=== PATIENT | female | born 1970 | race Caucasian/White ===

== ENCOUNTER 2020-06-09 07:31 | Day surgery (SDC) | payer OTHER, SELFPAY ==
[2020-06-01 15:36] VITALS: BMI 34.1
--- NOTE | 2020-06-04 13:48 | HO.ANESPROP2 ---
Documented by User: Lidia Ahumada 06/04/20 13:49 HPI - Anesthesia Eval Consult details Narrative: 49yo F for Colonoscopy PMFSH Past Medical History Medical History Depression HSV (herpes simplex virus) infection Hx of migraine headaches Hypothyroid Insomnia Surgical History Surgical History History of bilateral carpal tunnel release History of tubal ligation Hx of cholecystectomy [place] teeth extracted Social History Social History Are you a primary animal care attendant to a significant other at home: No Do you presently have visiting nurse or other home services: No Smoking Status: Former smoker Smoking Quit Date: > 10 yrs ago Use of substances other than those prescribed or required for medical reasons: No Have you been hit, kicked, punched, or otherwise hurt by someone within the past year? If so, by whom?: No Advance Directives: No Advance Directives Information Provided: No Advance Directives on File: No Recently lost weight without trying: No Meds Allergies Allergy/AdvReac Type Severity Reaction Status Date / Time sumatriptan [From IMITREX] Allergy Mild N/V Unverified 06/01/20 15:17 topiramate [From TOPAMAX] Allergy Mild HALLUCINATI Unverified 06/01/20 15:17 ONS latex Allergy Unknown Verified 06/01/20 15:35 Home Medications Medication Instructions Recorded Confirmed Last Taken Type jadnzxyitb-jcrzwraafscht-gxao 1 tab PO DIRECTED PRN 06/01/20 06/01/20 Unknown History fluoxetine 1 cap PO Q OTHER DAY 06/01/20 06/01/20 Unknown History fluoxetine 1 cap PO Q OTHER DAY 06/01/20 06/01/20 Unknown History gabapentin 1 cap PO TID 06/01/20 06/01/20 Unknown History levothyroxine 1 tab PO DAILY 06/01/20 06/01/20 Unknown History nabumetone 1 tab PO BID 06/01/20 06/01/20 Unknown History omega-3 fatty acids [Fish Oil] 1,000 mg PO DAILY 06/01/20 06/01/20 Unknown History omeprazole 1 cap PO DAILY 06/01/20 06/01/20 Unknown History valacyclovir 1 tab PO DAILY 06/01/20 06/01/20 Unknown History vitamin B complex [B Complex] 1 cap PO DAILY 06/01/20 06/01/20 Unknown History Exam Exam Date and Time: June 04, 2020 1348 Height,Weight and Vital Signs: Height 4 ft 11.5 in Weight 78.018 kg Assessment and Plan Assessment Anesthesia Assessment: Chart Reviewed Documented by User: Aysha Yañez 06/09/20 08:17 [facility] Past Medical History Medical History Depression HSV (herpes simplex virus) infection Hx of migraine headaches Hypothyroid Insomnia Surgical History Surgical History History of bilateral carpal tunnel release History of tubal ligation Hx of cholecystectomy [place] teeth extracted Social History Social History Are you a primary animal care attendant to a significant other at home: No Do you presently have visiting nurse or other home services: No Smoking Status: Former smoker Smoking Quit Date: > 10 yrs ago Use of substances other than those prescribed or required for medical reasons: No Have you been hit, kicked, punched, or otherwise hurt by someone within the past year? If so, by whom?: No Advance Directives: No Advance Directives Information Provided: No Advance Directives on File: No Recently lost weight without trying: No Meds Allergies Allergy/AdvReac Type Severity Reaction Status Date / Time sumatriptan [From IMITREX] Allergy Mild N/V Unverified 06/01/20 15:17 topiramate [From TOPAMAX] Allergy Mild HALLUCINATI Unverified 06/01/20 15:17 ONS latex Allergy Unknown Verified 06/01/20 15:35 Home Medications Medication Instructions Recorded Confirmed Last Taken Type lsnglyonpv-jhxmfitrrnsle-szsg 1 tab PO DIRECTED PRN 06/01/20 06/01/20 Unknown History fluoxetine 1 cap PO Q OTHER DAY 06/01/20 06/01/20 Unknown History fluoxetine 1 cap PO Q OTHER DAY 06/01/20 06/01/20 Unknown History gabapentin 1 cap PO TID 06/01/20 06/01/20 Unknown History levothyroxine 1 tab PO DAILY 06/01/20 06/01/20 Unknown History nabumetone 1 tab PO BID 06/01/20 06/01/20 Unknown History omega-3 fatty acids [Fish Oil] 1,000 mg PO DAILY 06/01/20 06/01/20 Unknown History omeprazole 1 cap PO DAILY 06/01/20 06/01/20 Unknown History valacyclovir 1 tab PO DAILY 06/01/20 06/01/20 Unknown History vitamin B complex [B Complex] 1 cap PO DAILY 06/01/20 06/01/20 Unknown History Exam Airway Mallampati Class: II TM Dist: >3cm Neck ROM: Full Assessment and Plan Assessment Anesthesia Assessment: Anesthesia Plan Discussed and Chart Reviewed Final Anesthetic Review NPO: Yes ASA Class: II Final Preanesthetic Review: No Changes in Pt Med Stat, Meds/Allgs Chart Reviewed, Consent Obtained/Reviewed and Anes Risks/Benef Reviewed Patient Risk: Low Procedure Risk: Low Assessment/Block/Sedation in SS: Assess/Block/Sedation-SS Anesthetic Plan Anesthetic Plan: MAC: Disposition: Standard PACU
[2020-06-09 07:54] VITALS: BP 126/81; PULSE 85; RESP 18; TEMP 36.6; O2SAT 95
[2020-06-09] MEDS: Lactated Ringers 1,000 ML 100 ML IVCONT (08:13)
--- NOTE | 2020-06-09 08:38 | MHC.SHP ---
Pre-Procedural Eval Section B Chief Complaint: Screening Details of Present Illness: screening Relevant Family History (Specify if Yes): No Relevant Social History: None Present Medications: see Short Stay Collaborative assessment Medical History: No relevant PMH History of Previous Operations: No relevant previous surgery Allergies: Allergies Allergy/AdvReac Type Severity Reaction Status Date / Time sumatriptan [From IMITREX] Allergy Mild N/V Unverified 06/01/20 15:17 topiramate [From TOPAMAX] Allergy Mild HALLUCINATI Unverified 06/01/20 15:17 ONS latex Allergy Unknown Verified 06/01/20 15:35 Review of Systems Sugical H&P ROS: Negative: Constitution, Cardiovascular, Respiratory, Neurological, Psychiatric, Hem-Onc, Allergic/Immunologic, Gastrointestinal, Genitourinary, Musculoskeletal, Integumentary, Endocrine and Eyes/Ears/Nose/Throat Exam Surgical H&P Exam: Normal: HEENT, Normal: Heart, Normal: Lungs, Normal: Extremities, Normal: Abdomen, Normal: Skin and Normal: Neurological Plan I have reviewed the history and physical and performed a pertinent physical examination on my patient. No changes have occurred unless specified.
[2020-06-09 09:05] VITALS: BP 103/62; PULSE 82; RESP 16; TEMP 36.9; O2SAT 96
--- NOTE | 2020-06-09 09:07 | PM.OP ---
Brief Operative Note Date of Service: 06/09/20 Pre-op diagnosis: screening Post-op diagnosis: same Procedure: colonoscopy Surgeon: Patrick Frank Anesthesia: MAC Estimated blood loss (mL): 0 Pathology: other (polyp 15 cm) Condition: stable Disposition: PACU
[2020-06-09 09:20] VITALS: BP 132/80; PULSE 64; RESP 17; TEMP 36.9; O2SAT 98
--- NOTE | 2020-06-09 09:22 | OP_ITS ---
SURGEON: Patrick Frank MD INDICATIONS: Colon cancer screening. PREOPERATIVE DIAGNOSIS: POSTOPERATIVE DIAGNOSIS: PROCEDURE PERFORMED: ESTIMATED BLOOD LOSS: COMPLICATIONS: ANESTHESIA: Medications, monitored anesthesia care. ASSISTANTS: SPECIMENS: PROCEDURES PERFORMED: Colonoscopy to the terminal ileum with snare polypectomy. DESCRIPTION OF PROCEDURE: History and physical performed. The risks and benefits of the procedure were explained to the patient. Informed consent was obtained. The patient was placed in the left lateral decubitus position. A digital rectal exam was performed and was found to be normal. The Olympus pediatric video colonoscope was introduced into the rectum and advanced to the cecum without difficulty. The cecum was identified by transillumination, palpation, and identification of ileocecal valve. Examination was performed. The scope was removed. She tolerated the procedure well and was taken to the recovery area in stable condition. FINDINGS: The terminal ileum was examined and appeared normal. The visualized colonic mucosa was within normal limits without evidence of masses or ulcers. A single polyp measuring approximately 8 mm was identified in the sigmoid at 15 cm. This was removed with a snare and recovered via suction. No other polyps were identified. There was scattered diverticulosis throughout the colon. The quality of the prep was good. Retroflexed examination was normal. IMPRESSION: Colon polyp. RECOMMENDATION: Follow up the biopsy results. MD TAMIKA Rowley/DOMINIQUE / [id number]
== END 2020-06-09 09:40 | disposition home or self-care (01) ==
PROVIDERS: PCP Internal Medicine; Visit Provider Internal Medicine Gastroenterology
PROC: 0DJD8ZZ Inspection of Lower Intestinal Tract, Via Natural or Artificial Opening Endoscopic (ICD-10-PCS; CPT 45378; principal; 2020-06-09 08:30)
DX: Z12.11 Encounter for screening for malignant neoplasm of colon (principal); K57.30 Diverticulosis of large intestine without perforation or abscess without bleeding; K63.5 Polyp of colon; Z79.899 Other long term (current) drug therapy; Z91.040 Latex allergy status; Z88.8 Allergy status to other drugs, medicaments and biological substances; Z87.891 Personal history of nicotine dependence
CPT/HCPCS: 45385; 88305

== ENCOUNTER 2020-10-28 | Outpatient (REF) | payer OTHER, SELFPAY | END 2020-10-28 00:01 | disposition home or self-care (01) | LOC: HO.LNP | PROVIDERS: Visit Provider Internal Medicine | DX: Z20.822 Contact with and (suspected) exposure to COVID-19 (principal); J06.9 Acute upper respiratory infection, unspecified | CPT/HCPCS: U0003; U0005 ==

== ENCOUNTER 2020-10-29 11:20 | Outpatient (REF) | payer OTHER, SELFPAY | END 2020-10-29 11:21 | disposition home or self-care (01) | LOC: HO.LNP 11:20 | PROVIDERS: Visit Provider Internal Medicine | DX: Z13.89 Encounter for screening for other disorder (principal) ==

== ENCOUNTER → 2020-11-23 15:42 | Outpatient (BNVA) | payer OTHER, SELFPAY | PROVIDERS: PCP Internal Medicine; Visit Provider Internal Medicine | DX: G47.33 Obstructive sleep apnea (adult) (pediatric) (principal); R53.83 Other fatigue; E66.9 Obesity, unspecified | CPT/HCPCS: 99212 ==

== ENCOUNTER → 2020-12-24 14:00 | Outpatient (REF) | payer OTHER, SELFPAY | LOC: HO.SL 14:00 | PROVIDERS: PCP Internal Medicine; Visit Provider Internal Medicine | DX: G47.33 Obstructive sleep apnea (adult) (pediatric) (principal); E66.9 Obesity, unspecified; R53.83 Other fatigue | CPT/HCPCS: 95806 ==

== ENCOUNTER 2021-01-18 08:05 | Outpatient (REF) | payer OTHER, SELFPAY | END 2021-01-18 08:06 | disposition home or self-care (01) | LOC: HO.HMGCLDS 08:05 | PROVIDERS: PCP Internal Medicine; Visit Provider Internal Medicine | DX: Z20.822 Contact with and (suspected) exposure to COVID-19 (principal) | CPT/HCPCS: C9803; U0003; U0005 ==

== ENCOUNTER 2021-02-15 14:47 | Outpatient (REF) | payer OTHER, SELFPAY ==
--- NOTE | ~2021-02-15 | XR_ITS ---
EXAMINATION: XR ELBOW, LEFT XR HAND, LEFT XR SHOULDER, LEFT XR CERVICAL SPINE CLINICAL INFORMATION: Personal history of other healed physical injury. Hand pain. COMPARISON: None TECHNIQUE: 3 views of the cervical spine. 3 views of the left shoulder. 3 views of the left elbow. 3 views of the left hand. FINDINGS: CERVICAL SPINE: No fracture or dislocation. Intervertebral disc height loss at C4-C5 and C5-C6 with marginal osteophyte formation. Minimal anterolisthesis of C3 on C4, minimal retrolisthesis of C4 on C5 and C5 on C6. Prevertebral soft tissues are unremarkable. Lung apices are clear. Dens is intact. LEFT SHOULDER: No fracture or dislocation: The glenohumeral joints and acromioclavicular joints are intact. Mild calcification projecting over the region of the greater tuberosity suggesting calcific tendinosis. Remainder of soft tissues are unremarkable. Visualized left lung is clear. LEFT ELBOW: No fracture or dislocation. Some calcification projecting over the lateral epicondyle. No foreign bodies. Soft tissues unremarkable. LEFT HAND: No fracture or dislocation. Alignment is normal. Soft tissues unremarkable. Cartilage spaces are preserved. XR/XR shoulder LT min 2V IMPRESSION: Degenerative disc disease in the cervical spine, greatest at C4-C5 and C5-C6. No acute process. No acute abnormality in the left shoulder. Suspect calcific tendinosis of the rotator cuff insertion. No acute fracture in the elbow. Calcifications projecting over the lateral epicondyle could represent epicondylitis.
--- NOTE | ~2021-02-15 | XR_ITS ---
EXAMINATION: XR ELBOW, LEFT XR HAND, LEFT XR SHOULDER, LEFT XR CERVICAL SPINE CLINICAL INFORMATION: Personal history of other healed physical injury. Hand pain. COMPARISON: None TECHNIQUE: 3 views of the cervical spine. 3 views of the left shoulder. 3 views of the left elbow. 3 views of the left hand. FINDINGS: CERVICAL SPINE: No fracture or dislocation. Intervertebral disc height loss at C4-C5 and C5-C6 with marginal osteophyte formation. Minimal anterolisthesis of C3 on C4, minimal retrolisthesis of C4 on C5 and C5 on C6. Prevertebral soft tissues are unremarkable. Lung apices are clear. Dens is intact. LEFT SHOULDER: No fracture or dislocation: The glenohumeral joints and acromioclavicular joints are intact. Mild calcification projecting over the region of the greater tuberosity suggesting calcific tendinosis. Remainder of soft tissues are unremarkable. Visualized left lung is clear. LEFT ELBOW: No fracture or dislocation. Some calcification projecting over the lateral epicondyle. No foreign bodies. Soft tissues unremarkable. LEFT HAND: No fracture or dislocation. Alignment is normal. Soft tissues unremarkable. Cartilage spaces are preserved. XR/XR cervical spine 3V IMPRESSION: Degenerative disc disease in the cervical spine, greatest at C4-C5 and C5-C6. No acute process. No acute abnormality in the left shoulder. Suspect calcific tendinosis of the rotator cuff insertion. No acute fracture in the elbow. Calcifications projecting over the lateral epicondyle could represent epicondylitis.
--- NOTE | ~2021-02-15 | XR_ITS ---
EXAMINATION: XR ELBOW, LEFT XR HAND, LEFT XR SHOULDER, LEFT XR CERVICAL SPINE CLINICAL INFORMATION: Personal history of other healed physical injury. Hand pain. COMPARISON: None TECHNIQUE: 3 views of the cervical spine. 3 views of the left shoulder. 3 views of the left elbow. 3 views of the left hand. FINDINGS: CERVICAL SPINE: No fracture or dislocation. Intervertebral disc height loss at C4-C5 and C5-C6 with marginal osteophyte formation. Minimal anterolisthesis of C3 on C4, minimal retrolisthesis of C4 on C5 and C5 on C6. Prevertebral soft tissues are unremarkable. Lung apices are clear. Dens is intact. LEFT SHOULDER: No fracture or dislocation: The glenohumeral joints and acromioclavicular joints are intact. Mild calcification projecting over the region of the greater tuberosity suggesting calcific tendinosis. Remainder of soft tissues are unremarkable. Visualized left lung is clear. LEFT ELBOW: No fracture or dislocation. Some calcification projecting over the lateral epicondyle. No foreign bodies. Soft tissues unremarkable. LEFT HAND: No fracture or dislocation. Alignment is normal. Soft tissues unremarkable. Cartilage spaces are preserved. XR/XR elbow LT min 3V IMPRESSION: Degenerative disc disease in the cervical spine, greatest at C4-C5 and C5-C6. No acute process. No acute abnormality in the left shoulder. Suspect calcific tendinosis of the rotator cuff insertion. No acute fracture in the elbow. Calcifications projecting over the lateral epicondyle could represent epicondylitis.
--- NOTE | ~2021-02-15 | XR_ITS ---
EXAMINATION: XR ELBOW, LEFT XR HAND, LEFT XR SHOULDER, LEFT XR CERVICAL SPINE CLINICAL INFORMATION: Personal history of other healed physical injury. Hand pain. COMPARISON: None TECHNIQUE: 3 views of the cervical spine. 3 views of the left shoulder. 3 views of the left elbow. 3 views of the left hand. FINDINGS: CERVICAL SPINE: No fracture or dislocation. Intervertebral disc height loss at C4-C5 and C5-C6 with marginal osteophyte formation. Minimal anterolisthesis of C3 on C4, minimal retrolisthesis of C4 on C5 and C5 on C6. Prevertebral soft tissues are unremarkable. Lung apices are clear. Dens is intact. LEFT SHOULDER: No fracture or dislocation: The glenohumeral joints and acromioclavicular joints are intact. Mild calcification projecting over the region of the greater tuberosity suggesting calcific tendinosis. Remainder of soft tissues are unremarkable. Visualized left lung is clear. LEFT ELBOW: No fracture or dislocation. Some calcification projecting over the lateral epicondyle. No foreign bodies. Soft tissues unremarkable. LEFT HAND: No fracture or dislocation. Alignment is normal. Soft tissues unremarkable. Cartilage spaces are preserved. XR/XR hand LT min 3V IMPRESSION: Degenerative disc disease in the cervical spine, greatest at C4-C5 and C5-C6. No acute process. No acute abnormality in the left shoulder. Suspect calcific tendinosis of the rotator cuff insertion. No acute fracture in the elbow. Calcifications projecting over the lateral epicondyle could represent epicondylitis.
== END 2021-02-15 14:48 | disposition home or self-care (01) ==
LOC: HO.HMGCX 14:47
PROVIDERS: PCP Internal Medicine; Visit Provider Physician Assistant Medical
DX: M50.321 Other cervical disc degeneration at C4-C5 level (principal); M79.642 Pain in left hand; Z87.828 Personal history of other (healed) physical injury and trauma
CPT/HCPCS: 72040; 73030; 73080; 73130

== ENCOUNTER → 2021-02-25 15:06 | Outpatient (BNVA) | payer OTHER, SELFPAY | PROVIDERS: PCP Internal Medicine; Visit Provider Physician Assistant | DX: S53.402A Unspecified sprain of left elbow, initial encounter (principal); S50.02XA Contusion of left elbow, initial encounter; S54.10XA Injury of median nerve at forearm level, unspecified arm, initial encounter; S63.502A Unspecified sprain of left wrist, initial encounter | CPT/HCPCS: 99202 ==

== ENCOUNTER → 2021-03-16 14:39 | Outpatient (BNVA) | payer OTHER, SELFPAY | PROVIDERS: PCP Internal Medicine; Visit Provider Physician Assistant | DX: S54.1 Injury of median nerve at forearm level (principal); S50.02XD Contusion of left elbow, subsequent encounter; S53.402D Unspecified sprain of left elbow, subsequent encounter | CPT/HCPCS: 99212 ==

== ENCOUNTER 2021-04-01 09:05 | Outpatient (REF) | payer OTHER, SELFPAY ==
--- NOTE | ~2021-04-01 | XR_ITS ---
EXAMINATION: XR SHOULDER, RIGHT CLINICAL INFORMATION: Pain, right shoulder. COMPARISON: Left shoulder 02/15/2021. TECHNIQUE: AP external rotation, Grashey, scapular Y, and axillary views of the right shoulder. FINDINGS: There is a soft tissue calcification along the superior lateral right rotator cuff likely calcific tendinitis. Loss of AC and glenohumeral joint space is seen. There is mild deformity along the inferior scapula on the AP view question artifact versus old healed fracture. No loose bodies, acute fracture or dislocation. XR/XR shoulder RT min 2V IMPRESSION: Calcific right rotator cuff tendinitis. Mild degenerative changes right AC and glenohumeral joint. Question old healed fracture versus artifact along the inferior scapula. It is a new finding compared to 02/15/2021. Correlate with clinical exam.
== END 2021-04-01 09:06 | disposition home or self-care (01) ==
LOC: HO.HOSX 09:05
PROVIDERS: Visit Provider Physician Assistant
DX: M75.32 Calcific tendinitis of left shoulder (principal)
CPT/HCPCS: 73030; 99212; J1040

== ENCOUNTER 2021-04-15 14:15 | Outpatient (REF) | payer OTHER, SELFPAY ==
--- NOTE | 2021-04-16 10:18 | MHC.AU.ANO ---
Adult Audiological Evaluation Date of Visit: 04/15/21 Copy Lathe Tender Used: Not Applicable Reason for Appointment: Audiologic evaluation due to question of increasing hearing difficulties and tinnitus. Does patient feel they have a hearing loss?: Yes If Yes, Which Ear?: Right Ear Has hearing been tested previously?: Yes Previous Hearing Test Results: 2013 [facility] - Results are not available for review at this time Hearing Handicap Inventory: HHIE SCORE: 8 Based on HHIE score, patient has: No perceived hearing handicap Ear History: Family History of Hearing Loss?: Yes Mother Bothersome Tinnitus/Ringing/Noises in Ears: Both Ears Ear used on the phone: Left Ear History of occupational noise exposure?: Yes History: No Medical History: Medical History: Migraines, Thyroid Disease Allergies: Latex, Sumatriptan, Topiramate Medication List: Estradiol, Sertraline, Valacyclovir HCC, Butalbital, Levothyroxine, Gabapentin, Celecoxib, Progesterone, Vitamin D3, Ashwagandha/Magnesium, Tumeric Otoscopy: Right Ear: Unremarkable Left Ear: Unremarkable Tympanometry: Tympanometry performed due to: To assess integrity of the middle ear system Right Ear: Normal Middle Ear System (Type A) Left Ear: Normal Middle Ear System (Type A) Otoacoustic Emissions Frequency Range Used: 1.6-8 kHz Right Ear Results: Present 0789-9541 Hz Absent 1792-9609 Hz Analysis: Present emissions suggest normal cochlear function Reduced/Absent emissions suggest cochlear dysfunction Results are consistent with degree and configuration of hearing loss Left Ear Results: Present 7118-4546 Hz Absent 3656-8709 Hz Analysis: Present emissions suggest normal cochlear function Reduced/Absent emissions suggest cochlear dysfunction Results are consistent with degree and configuration of hearing loss Hearing Evaluation: Transducer(s) Used: Insert Earphones Bone Conduction Method: Conventional Audiometry Stimuli Used: Pure Tones Right Ear: Description of Hearing: Normal hearing thresholds 250-3000 Hz, sloping to a moderate high frequency sensorineural hearing loss. Left Ear: Description of Hearing: Normal hearing thresholds 250-3000 Hz with borderline normal thresholds at 4492-0597 Hz. Speech Recognition Threshold (SRT): Method Used: Monitored Live Voice Stimuli Used: Spondee Words Right Ear: 5 dB HL Left Ear: 5 dB HL Word Discrimination: Method: Recorded Lists Word Lists Used: NU-6 Right Ear: 100% at 50 dB HL Left Ear: 100% at 50 dB HL Interpretation of Results: The mild high frequency decrease can cause speech understanding difficulties if a person is talking from a distance or background noise is present. Discussed and provided a handout regarding Communication Strategies to improve speech understanding as much as possible when needed. Airanne's tinnitus, right ear greater than left, is likely related to the decreased high frequency cochlear function. Discussed the theories of tinnitus and management strategies. Recommendations: Audiologic re-evaluation in 2 years or soon if change in symptoms occur. Diagnosis: Primary Diagnosis: H93.13 Tinnitus, Bilateral Secondary Diagnosis: H90.3 Bilateral Sensorineural Hearing Loss Services Performed: Comprehensive Audiological Evaluation (CPT 56256) Diagnostic Otoacoustic Emissions (CPT 90386, 26+TC) Tympanometry (CPT 64483) Signature: Provider: Lexa Cao, CCC-A
== END 2021-04-15 14:16 | disposition home or self-care (01) ==
LOC: HO.SH 14:15
PROVIDERS: Visit Provider Internal Medicine
DX: Z01.118 Encounter for examination of ears and hearing with other abnormal findings (principal); H93.13 Tinnitus, bilateral; H90.3 Sensorineural hearing loss, bilateral
CPT/HCPCS: 92557; 92567; 92588

== ENCOUNTER 2021-04-22 08:00 | Outpatient (RCR) | payer OTHER, SELFPAY ==
--- NOTE | 2021-03-11 11:56 | MHC.OT.OEV ---
[address] [phone] F: [phone] Occupational Therapy Evaluation Diagnosis: LEFT ELBOW CONTUSION Date of Onset: 02/13/21 Attending Provider: Priyanka Harrison Prescribed Treatment: [facility] ANDRADE Follow Up Appointment: 03/16/21 History of Current Condition: 50-year-old ohqok-gzeg-anxwhmdh female who injured her left elbow and wrist after she slipped and fell down 4 stairs. She states that she landed heavily on the medial aspect of the left elbow. Ever since then she has had numbness and tingling in the 4th and 5th digits on the palmar aspect of her hand. A sling was initially provided for protection, has since discontinued. She reports her symptoms have gradually improved. 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 IND ADLs AND IADLs PRIOR TO INJURY. 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 HOBBIES: PLAYING AND CARING FOR DOG, GARDENING Living Situation, Family and/or Social Support: LIVES WITH MOTHER (ATTENDS DAY PROGRAM), 55 LB DOG Current Level of Function and Occupation Self Care, Employment, Leisure: CURRENTLY ON LIGHT DUTY (RINGING AT REGISTER, AVOIDING L HAND USE). PREVIOUSLY REQUIRED LIFTING BOXES, BREAKING DOWN BOXES, DATING ITEMS, RETRIEVING PIZZAS OUT OF OVEN. B/L HAND TASKS. Sleep: ELEVATING LEFT ARM ON PILLOW FOR COMFORT; MILD-MODERATE DIFFICULTIES WITH SLEEPING. SLEEPS ON STOMACH. HX POOR SLEEP AT BASELINE. Driving: NO DIFFICULTIES DUE TO COMPENSATORY TECHNIQUES, MOSTLY USING RIGHT HAND AND AVOIDING USING L D4/D5 TO HOLD STEERING WHEEL Pain Assessment Pain Score: 2-8/10 Pain Scale Used: Numeric (0 - 10) Pain Location and Description: 2/10 AT REST IN D4/D5 7-8/10 WITH USE IN D4/D5 REPORTS MODERATE NUMBNESS/TINGLING Aggravating Factors: SUSTAINED FLEXION AT ELBOW Alleviating Factors: REPOSITIONING SELF, TYLENOL, WAS INITIALLY USING ICE FOR PAIN AND INFLAMMATION AFTER INJURY Skin and Soft Tissue Assessment Skin and Soft Tissue: Comments: POSTURING L D4/D5 IN CLAW POSITION, MILD ATROPHY NOTED IN HYPOTHENAR EMINENCE, TENDER AT MEDIAL EPICONDYLE Sensory Assessment Temperature: Light Touch: Left Impaired Proprioception: Vibration: Comments: SEMMES BAM DIMINISHED TO LIGHT TOUCH L D4/D5 AND ULNAR DISTRIBUTION ON PALM. Edema Assessment Upper Extremity: WNL Lower Extremity: Comments: CIRCUMFERENCE OF WRIST, DISTAL TO US: LEFT 15.0 CM, RIGHT 14.8 CM Dexterity Assessment Dexterity: Left Impaired Comments: FUNCTIONAL DEXTERITY TEST: L 30 SEC (MOD FUNCTIONAL), R 25 SEC Special Tests Comments: AROM(PROM) Strength Elbow Flexion: L 125, R 155 Extension: L 2, R 2 Pronation: L 85, R 85 Supination: L 85, R 65 Comments: Flexion: Extension: Pronation: Supination: Comments: Wrist Flexion: L 60, R 75 Extension: L 65, R 70 Ulnar Deviation: L 35, R 40 Radial Deviation: L 15, R 20 Comments: PAIN IN L WRIST WITH FLEX/EXT AND UD/RD Flexion: Extension: Ulnar Deviation: Radial Deviation: Comments: Thumb Thumb CMC Flexion: Thumb MCP Flexion: Thumb IP Flexion: Radial Abduction: Palmar Abduction: [place] (Kapandji 0-10): L 9/10, R 10/10 Comments: Digits Index MCP: PIP: DIP: Long MCP: PIP: DIP: Ring MCP: PIP: DIP: Small MCP: PIP: DIP: Comments: POSTURING IN CLAW DEFORMITY WITH FLEXION AT PIPj D4/D5, LACKING FULL AT PIPj OF D4/D5 Gross Grasp: L 18, R 38 Lateral Pinch: Two-Point Pinch: Three-Jaw Raúl: Comments: Patient Education Primary Language: East Timorese Drying Equipment Operator Required: No Current Knowledge: Understands information with skills for self-management Teaching Method: Demonstration Handouts Phone Call Verbal Education Needs Identified on Evaluation: ADL's Disease Information Equipment Use Exercise Pain Safety How did patient/family demonstrate learning? Patient demonstrates Patient verbalizes Barriers to Learning: None Readiness for Learning: Accepting Who was educated? Patient Comments: PATIENT REQUESTING TELEHEALTH VISIT 1X/WEEK AND CLINIC VISIT 1X/WEEK DUE TO WORK SCHEDULE, PERSONAL CONFLICTS Plan of Care Assessment: MS CHAVEZ REPORTS SLIPPING ON ICE AND FALLING DOWN 5 STAIRS, LANDING ON THE MEDIAL ASPECT OF HER ELBOW. HER S/S ARE CONSISTENT WITH A LOWER NERVE INJURY, RESULTING IN NUMBNESS/TINGLING THROUGH HER RING AND SMALL FINGER. SHE POSTURES IN A PARTIAL CLAW HAND DEFORMITY WITH FLEXION AT THE PIPj OF RF AND SF. SINCE HER INJURY, ABOUT A MONTH AGO, SHE HAS BEEN ON LIGHT DUTY AT WORK AND REPORTS A 68% LIMITATION PER THE QUICK DASH ASSESSMENT. ONGOING SKILLED OT IS WARRANTED TO ADDRESS THE AREAS MENTIONED BELOW, INCLUDING POSSIBLE FABRICATION OF AN ANTI-CLAW HAND AND/OR RESTING WRIST ORTHOSIS. STG Duration: 2 WEEKS Short Term Goals: IND HEP IND POSITIONING STRATEGIES AND JOINT PROTECTION THROUGH LUE IND WITH ORTHOSIS WEAR, NEEDED REPORT MILD SYMPTOMS DURING DAYTIME HOURS INCREASE L ELBOW FLEX >140 DEGREES LTG Duration: 4 WEEKS Patient Safety Attendant Goals: L DIRECTOR OF COLLECTIONS AND ARCHIVES >30 POUNDS QUICK DASH <50% TOLERATE LIFTING >10 POUNDS WITH PROPER LIFTING STRATEGIES AND Jt PROTECTION REPORT SYMPTOM FREE DURING DAYTIME HOURS Frequency and Duration: The patient will be seen 2X/WEEK FOR 4 WEEKS Treatment Plan: Therapeutic Exercise Therapeutic Activity Home Exercise Program Splinting Neuro Re-ed Patient Education Desensitization/Sensory Re-ed Edema Control ADL Training Ultrasound NMES Iontophoresis Paraffin Fluidotherapy MHP Cold Packs Joint Mobilization Soft Tissue Mobilization Kinesiotaping Other (see comments) Electronically Signed By: VENUS GUERRIER OTR/L Reviewed/agree with student documentation: N/A Therapist: Please sign and return to therapist, Thank you for your referral.
--- NOTE | 2021-04-22 08:45 | MHC.OT.DC ---
[address] [phone] F: [phone] Occupational Therapy Discharge Note Provider: Priyanka Harrison Diagnosis: LEFT ELBOW CONTUSION Date of Evaluation: 03/11/21 Date of Discharge: 04/22/21 Treatments to Date: 6 Discharge Status: Achieved Goals Improved Function Independent with HEP Discharge Summary: MS CHAVEZ HAS BEEN MOTIVATED AND HAS SHOWN STEADY IMPROVEMENTS WITH EACH OT SESSION. SHE NOW REPORTS THAT SHE IS MOSTLY SYMPTOM FREE DURING THE DAY WITH MILD NUMBNESS THROUGH SF AT NIGHT. HER STRENGTH, ROM AND ABILITY TO COMPLETE WORK CONDITIONING TASKS ARE WNL. EXTENSIVE EDUCATION WAS PROVIDED ON NERVE PROTECTION DURING ADLs AND IADLs AND EXHIBITS GOOD UNDERSTANDING. Pt WILL BE TRANSITIONED TO A HOME BASED PROGRAM AT THIS TIME. D/C TO SERVICES. Electronically Signed By: MERISSA VARGAS/Wilder Reviewed/agree with student documentation: N/A Therapist: Please Sign and return to therapist, thank you for your referral.
== END 2021-04-22 08:45 | disposition home or self-care (01) ==
LOC: HO.OT 08:00
PROVIDERS: PCP Internal Medicine; Visit Provider Physician Assistant
DX: S50.02XD Contusion of left elbow, subsequent encounter (principal)
CPT/HCPCS: 29125; 29130; 97035; 97110; 97112; 97140; 97166; 97530; 97760

== ENCOUNTER → 2021-04-27 13:40 | Outpatient (BNVA) | payer OTHER, SELFPAY | PROVIDERS: PCP Internal Medicine; Visit Provider Physician Assistant | DX: S50.02XD Contusion of left elbow, subsequent encounter (principal); S54.1 Injury of median nerve at forearm level | CPT/HCPCS: 99212 ==

== ENCOUNTER 2021-09-02 08:41 | Outpatient (REF) | payer OTHER, SELFPAY ==
--- NOTE | 2021-09-02 08:45 | EMG_ITS ---
Left median and ulnar motor and sensory studies were performed. Left radial and sensory study were performed and paraspinal muscles were tested. IMPRESSION: 1. Mild left ulnar neuropathy across cubital tunnel. 2. Minimal left median neuropathy across carpal tunnel affecting sensory component. MD NANCY Rain/DOMINIQUE / [phone]
== END 2021-09-02 08:42 | disposition home or self-care (01) ==
LOC: HO.NEURO 08:41
PROVIDERS: PCP Internal Medicine; Visit Provider Physician Assistant
DX: S54.10XA Injury of median nerve at forearm level, unspecified arm, initial encounter (principal); S50.02XA Contusion of left elbow, initial encounter; X58.XXXA Exposure to other specified factors, initial encounter; Y93.9 Activity, unspecified; Y92.9 Unspecified place or not applicable; Y99.9 Unspecified external cause status
CPT/HCPCS: 95886; 95909

== ENCOUNTER 2021-10-21 06:08 | Outpatient (REF) | payer OTHER, SELFPAY ==
--- NOTE | ~2021-10-21 | XR_ITS ---
EXAMINATION: XR BILATERAL HIPS CLINICAL INFORMATION: Bilateral hip pain COMPARISON: None TECHNIQUE: AP and frog-leg views of each hip were obtained. FINDINGS: Bone alignment is normal. No fracture or dislocation is seen. The joint spaces are normal. Bones of the pelvis are normal. There are bilateral Essure devices in the pelvis. XR/XR hips BLANKA min 3V IMPRESSION: Normal-appearing hip joints.
--- NOTE | ~2021-10-21 | XR_ITS ---
EXAMINATION: XR LUMBOSACRAL SPINE CLINICAL INFORMATION: Pain COMPARISON: Previous exam most recent December 2018 TECHNIQUE: Three views of the lumbosacral spine. FINDINGS: Bone alignment is normal. No fracture or dislocation is seen. There is mild disc space narrowing at L3-L4 and L4-L5. There is lower lumbar spine facet arthritis. XR/XR lumbar spine 2-3V IMPRESSION: Mild degenerative changes similar to previous exam.
[2021-10-21 11:36] LABS: MANUAL DIFF FLAG NO
[2021-10-21 11:51] LABS: Basophils Percent Auto 0.6 % (0-2); Eosinophils Absolute Auto 0.2 X10*3/uL (0.0-0.4); Eosinophils Percent Auto 2.8 % (0-4); Hematocrit 41.5 % (37.0-47.0); Hemoglobin 14.1 g/dl (12.0-16.0); Imm Gran Abs Auto 0.01 X10*3/uL (0.00-0.03); Imm Gran Pct Auto 0.2 % (0.0-0.4); Lymphocytes Absolute Auto 1.8 X10*3/uL (1.2-4.9); Lymphocytes Percent Auto 33.3 % (20-40); Mean Corpuscular Hemoglobin 30.6 pg (27.0-33.0); Mean Platelet Volume 9.1 fL (9.4-12.3); Monocytes Absolute Auto 0.5 X10*3/uL (0.1-1.2); Monocytes Percent Auto 9.7 % (2-11); Neutrophils Absolute Auto 2.9 x10*3/uL (2.0-8.3); Neutrophils Percent Auto 53.4 % (45-73); Platelet Count 308 X10*3/uL (160-400); Red Blood Count 4.61 X10*6/uL (4.20-5.50); Red Cell Distribution Width 12.7 % (11.0-16.0); White Blood Count 5.4 X10*3/uL (4.8-10.8)
[2021-10-21 11:57] LABS: Alanine Aminotransferase 20 U/L (0-31); Albumin Level 4.1 g/dL (3.5-5.0); Alkaline Phosphatase 104 U/L (39-117); Anion Gap 15 (12-20); Aspartate Amino Transferase 17 U/L (5-31); Bilirubin Total 0.3 mg/dL (0.0-1.0); Blood Urea Nitrogen 13 mg/dL (9-16); Calcium 9.1 mg/dL (8.4-10.2); Carbon Dioxide 25 mmol/L (22-29); Chloride 107 mmol/L (96-108); Cholesterol 253 mg/dL; Estimated Glomerular Filt Rate > 60; Glucose Fasting 106 mg/dL (60-99); HDL Cholesterol 60 mg/dL; LDL Cholesterol Calculated 158 mg/dl; Potassium 4.1 mmol/L (3.3-5.1); Sodium 143 mmol/L (135-145); Total Protein 6.1 g/dL (6.5-8.0); Triglycerides 177 mg/dL
[2021-10-21 12:20] LABS: Thyroid Stimulating Hormone 0.71 uIU/mL (0.32-4.0); Vitamin D 25-OH Total 32.3 ng/mL (>30)
[2021-10-21 13:30] LABS: Appearance Urine Clear; Color Urine Yellow; Glucose Urine UA Negative (Negative); Leukocyte Esterase Urine Negative (Negative); Nitrite Urine Negative (Negative); Specific Gravity - Urine 1.015 (1.005-1.025); Urine Blood Negative (Negative); Urine Ketones Negative (Negative); Urine Protein Negative (Neg-Trace)
[2021-10-21 13:35] LABS: Bacteria Urine None Seen (None Seen); Hyaline Casts Urine 0-2 /LPF (0-2); RBC Urine 0-2 /HPF (0-2); Squamous Epithelial Cell Urine 0-2 /HPF (0-2); WBC Urine 0-5 /HPF (0-5)
== END 2021-10-21 06:09 | disposition home or self-care (01) ==
LOC: HO.HMGCX 06:08
PROVIDERS: PCP Internal Medicine; Visit Provider Internal Medicine
DX: M54.50 Low back pain, unspecified (principal); E03.9 Hypothyroidism, unspecified; E78.00 Pure hypercholesterolemia, unspecified; G43.009 Migraine without aura, not intractable, without status migrainosus; F41.9 Anxiety disorder, unspecified
CPT/HCPCS: 36415; 72100; 73522; 80053; 80061; 81001; 82306; 84443; 85025

== ENCOUNTER 2021-10-23 11:33 | Outpatient (REF) | payer OTHER, SELFPAY ==
[2021-10-23 13:10] LABS: Appearance Urine Clear; Color Urine Yellow; Glucose Urine UA Negative (Negative); Leukocyte Esterase Urine Trace (Negative); Nitrite Urine Negative (Negative); PH 5.5 (5.0-9.0); Specific Gravity - Urine 1.015 (1.005-1.025); Urine Blood Negative (Negative); Urine Ketones Negative (Negative); Urine Protein Negative (Neg-Trace)
[2021-10-23 13:12] LABS: Bacteria Urine None Seen (None Seen); Hyaline Casts Urine 0-2 /LPF (0-2); RBC Urine 0-2 /HPF (0-2); Squamous Epithelial Cell Urine 0-2 /HPF (0-2); WBC Urine 0-5 /HPF (0-5)
== END 2021-10-23 11:34 | disposition home or self-care (01) ==
LOC: HO.HMGCLDS 11:33
PROVIDERS: PCP Internal Medicine; Visit Provider Internal Medicine
DX: R35.0 Frequency of micturition (principal)
CPT/HCPCS: 81001; 87086

== ENCOUNTER → 2021-12-07 15:16 | Outpatient (BNVA) | payer OTHER, SELFPAY | PROVIDERS: PCP Internal Medicine; Visit Provider Orthopaedic Surgery | DX: G56.22 Lesion of ulnar nerve, left upper limb (principal); Z98.890 Other specified postprocedural states | CPT/HCPCS: 99202 ==

== ENCOUNTER 2021-12-30 08:35 | Outpatient (REF) | payer OTHER, SELFPAY ==
--- NOTE | ~2021-12-30 | FL_ITS ---
EXAMINATION: XR GI SERIES CLINICAL INFORMATION: Gastritis. Abdominal pain. COMPARISON: None TECHNIQUE: Routine upper GI air-contrast study was performed in upright and lying position. FINDINGS: Following oral administration of thick barium and effervescent granules, there is normal propagation of bolus from the oral cavity through the pharynx, esophagus into stomach without any evidence of obstruction, narrowing or stricture. On placing patient supine and prone lying, the course, caliber and peristalsis of stomach and the duodenal bulb is normal. The mucosal pattern of the stomach and duodenum is normal. No gastroesophageal reflux or hiatal hernia seen. Incidental finding of previous cholecystectomy. FLUOROSCOPY TIME: 2.0 minutes DOSE AREA PRODUCT: 30.782 uGy-m2 (microgray-meter squared) FL/FL upper GI series IMPRESSION: Unremarkable upper GI exam.
== END 2021-12-30 08:36 | disposition home or self-care (01) ==
LOC: HO.XRAY 08:35
PROVIDERS: PCP Internal Medicine; Visit Provider Internal Medicine
DX: K29.70 Gastritis, unspecified, without bleeding (principal)
CPT/HCPCS: 74240

== ENCOUNTER → 2022-01-12 14:41 | Outpatient (BNVA) | payer OTHER, SELFPAY | PROVIDERS: PCP Internal Medicine; Visit Provider Orthopaedic Surgery | DX: G56.22 Lesion of ulnar nerve, left upper limb (principal); Z98.890 Other specified postprocedural states | CPT/HCPCS: 99212 ==

== ENCOUNTER 2022-03-08 10:00 | Outpatient (REF) | payer OTHER, SELFPAY | END 2022-03-08 10:01 | disposition home or self-care (01) | LOC: HO.HOSX 10:00 | PROVIDERS: Visit Provider Physician Assistant | DX: Z13.89 Encounter for screening for other disorder (principal) ==

== ENCOUNTER 2022-03-17 16:27 | Outpatient (REF) | payer OTHER, SELFPAY ==
--- NOTE | ~2022-03-17 | XR_ITS ---
EXAMINATION: XR SHOULDER, RIGHT CLINICAL INFORMATION: Pain. COMPARISON: None TECHNIQUE: AP external rotation, Grashey, scapular Y, and axillary views of the right shoulder. FINDINGS: Bony alignment and mineralization are normal. The glenohumeral joint is intact. The acromioclavicular and coracoclavicular intervals are normal. There is mild osteoarthritic change of the acromioclavicular joint. There is a distal acromial osteophyte. There is cortical irregularity of the greater tuberosity of the proximal right humerus. No fracture or dislocation is seen. There is no soft tissue calcification or foreign body. No right pneumothorax is seen. XR/XR shoulder RT min 2V IMPRESSION: 1. There is mild osteoarthritic change of the right acromioclavicular joint. 2. Findings are consistent with right rotator cuff impingement. No chidi calcific tendinitis is noted.
== END 2022-03-17 16:28 | disposition home or self-care (01) ==
LOC: HO.HOSX 16:27
PROVIDERS: Visit Provider Physician Assistant
DX: M75.101 Unspecified rotator cuff tear or rupture of right shoulder, not specified as traumatic (principal)
CPT/HCPCS: 20610; 73030; 99212; J1040

== ENCOUNTER → 2022-03-29 14:19 | Outpatient (BNVA) | payer OTHER, SELFPAY | PROVIDERS: PCP Internal Medicine; Visit Provider Orthopaedic Surgery | DX: G56.22 Lesion of ulnar nerve, left upper limb (principal); R22.31 Localized swelling, mass and lump, right upper limb; Z98.890 Other specified postprocedural states | CPT/HCPCS: 99212 ==

== ENCOUNTER 2022-03-31 05:59 | Day surgery (SDC) | payer OTHER, SELFPAY ==
[2022-03-24 15:37] VITALS: BMI 34.3
--- NOTE | 2022-03-30 17:01 | P.CONAN_ITS ---
HPI - Anesthesia Eval Consult details Narrative: 51 yo female patient for Left Cubital tunnel release vs transposition PMFSH Active Problems Active Problems: All Active Problems (Updated 03/29/22 @ 15:03 by Angel Llamas) Mass of finger of right hand (Acute) Upper respiratory tract infection (Acute) Left hand pain (Acute) Hx of neck injury (Acute) Elbow pain, left (Acute) Sprain of left elbow (Acute) Left elbow contusion (Acute) Median nerve injury (Acute) Left wrist sprain (Acute) Calcific tendinitis of left shoulder (Acute) History of carpal tunnel release of both wrists (Acute) Cubital tunnel syndrome on left (Acute) Painful arc syndrome of right shoulder (Acute) Fatigue (Acute) IRIS (obstructive sleep apnea) - history. Patient states not any more. Not using CPAP Obesity (Acute) Past Medical History Medical History Depression Fatigue HSV (herpes simplex virus) infection Hx of migraine headaches Hypothyroid Insomnia Obesity IRIS (obstructive sleep apnea) Family History Family history of problems with anesthesia: No Surgical History Surgical History History of bilateral carpal tunnel release History of tubal ligation Hx of cholecystectomy Hx of colonoscopy [place] teeth extracted History of Problems with Anesthesia: No Social History Social History (Updated 03/31/22 @ 08:17 by Lorena Dubon MD) Are you a primary intensive care medicine specialist to a significant other at home: No Do you presently have visiting nurse or other home services: No Patient Tobacco Use Status: Former Tobacco user Use of substances other than those prescribed or required for medical reasons: Yes Substance Use Type: Marijuana Substance Use Type Other:: gummies Are you DNR?: No Advance Directives: No Advance Directives Information Provided: Yes Recently lost weight without trying: No Nutrition Risks: No Nutritional Risk Current occupational status: employed 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 Meds Allergies Allergy/AdvReac Type Severity Reaction Status Date / Time latex Allergy Mild Unknown Verified 03/29/22 14:47 sumatriptan [From IMITREX] Allergy Mild N/V Verified 03/29/22 14:47 topiramate [From TOPAMAX] Allergy Mild HALLUCINATI Verified 03/29/22 14:47 ONS Active Medications: Current Medications Cefazolin Sodium/Dextrose (Ancef) 2 gm in 50 mls @ 100 mls/hr IV PREOP ONE Stop: 03/30/22 17:15 Home Medications Medication Instructions Recorded Confirmed Last Taken Type vuvgirvqdg-cwzjqgtpjzlsr-dmouaqxw 1 tab PO DIRECTED PRN Migraine 06/01/20 03/24/22 Unknown History 50 mg-325 mg-40 mg tablet Headache levothyroxine 112 mcg tablet 1 tab PO DAILY 06/01/20 03/24/22 Unknown History nabumetone 500 mg tablet 1 tab PO BID 06/01/20 03/24/22 Unknown History omega-3 fatty acids 1,000 mg PO DAILY 06/01/20 03/24/22 Unknown History omeprazole 20 mg capsule,delayed 1 cap PO DAILY 06/01/20 03/24/22 Unknown History release valacyclovir 500 mg tablet 1 tab PO DAILY 06/01/20 03/24/22 Unknown History gabapentin 300 mg capsule 900 mg PO BEDTIME 11/23/20 03/24/22 Unknown History sertraline 50 mg tablet 75 mg PO DAILY 02/15/21 03/24/22 Unknown History Exam Exam Date and Time: March 30, 2022 1701 Height,Weight and Vital Signs: Height 4 ft 11 in Weight 77.111 kg Vital Signs Temp Pulse Resp BP Pulse Ox O2 Del Method 03/31/22 06:24 97.6 F 63 16 97/43 L 96 Room Air Airway Mallampati Class: III (Small mouth opening) TM Dist: >3cm Neck ROM: Full Loose/Missing/Broken Teeth: No (Denies broken, loose, missing teeth) Heart: RRR Lungs: CTAB Assessment and Plan Assessment Anesthesia Assessment: Anesthesia Plan Discussed and Chart Reviewed Final Anesthetic Review Family History of Problems with Anesthesia: No History of Problems with Anesthesia: No NPO: Yes ASA Class: II Final Preanesthetic Review: No Changes in Pt Med Stat, Meds/Allgs Chart Reviewed, Consent Obtained/Reviewed and Anes Risks/Benef Reviewed Patient Risk: Intermediate Procedure Risk: Low Assessment/Block/Sedation in SS: Assess/Block/Sedation-SS Anesthetic Plan Anesthetic Plan: GA Disposition: Standard PACU
[2022-03-31] VITALS (7 sets, daily range): BP systolic 97–114; BP diastolic 36–53; PULSE 60–76; RESP 16–18; TEMP 36.3–36.4; O2SAT 95–97
[2022-03-31] MEDS: Lactated Ringers 1,000 ML 50 ML IVCONT (06:35)
--- NOTE | 2022-03-31 07:41 | P.OP_ITS ---
Operative Note Operative Note Date of Service: 03/31/22 Narrative: Operative Note Narrative: Preop diagnosis: 1. left Cubital tunnel syndrome Postop diagnosis: Same Procedure: 1. left Cubital Tunnel Release Surgeon: Mónica Valles MD Anesthesia: General Anesthesia Findings: Thickening and fibrosis about the ulnar nerve at the cubital tunnel Implants: none Tourniquet time: 18 minutes EBL: 5.0 ml Specimen: none Drains: None Complications: None Disposition: Brought to the recovery room in stable condition Plan: Follow-up in 10-14 days for wound check, and suture removal Indications: The patient is 51 years old with left cubital tunnel syndrome . The risks and benefits of operative treatment, including but not limited to risk of damage to blood vessels, nerves, tendons, infection, recurrence, persistent pain or numbness, incomplete resolution of preoperative symptoms, or need for further surgery were discussed with the patient and they wished to proceed with surgery. Procedure: Once consent was obtained patient was brought back to the operating suite and placed in the operating table in a supine position. Perioperative antibiotics and anesthesia was administered by the anesthesia team. The limb was prepped and draped in a standard surgical fashion, and a sterile tourniquet applied to the proximal aspect of the left upper extremity. The limb was elevated exsanguinated with Esmarch bandage and the tourniquet inflated to 250 mm of mercury for a total tourniquet time of 18 minutes. A 6 cm gently curved but longitudinally oriented incision was made centered over the cubital tunnel of the left upper extremity. Incision was made through the skin to the subcutaneous tissues using a # 15 Blade. I then dissected down to the level of the medial epicondyle and the cubital tunnel using tenotomy scis sors. Care was taken to protect the lateral antebrachial cutaneous nerve. The ulnar nerve was identified just posterior to the medial intermuscular septum. The ulnar nerve was released in a proximal to distal direction using tenotomy in iris scissors while directly visualizing and protecting the ulnar nerve. Thickening and fibrosis was appreciated about the ulnar nerve as it passed through the cubital tunnel. The ulnar nerve was assessed as I passed the elbow through full flexion and extension [and was found to remain stable within its groove]. At this point the tourniquet was deflated and hemostasis obtained with a brief period of local pressure and bipolar electrocautery. The wound was copiously irrigated with normal saline. The subcutaneous layer was closed with 4-0 Vicryl suture, and the skin edges were reapproximated with 5-0 nylon suture. The wound was infiltrated with some 0.25% plain ropivacaine for postop pain control and sterile dressings and a posterior splint was applied. The patient appears to have tolerated the procedure well and with no complications. All digits were well vascularized conclusion of the case.
--- NOTE | 2022-03-31 07:41 | MHC.SHP ---
Pre-Procedural Eval Section A Date of Service: 03/31/22 The patient is an INPATIENT: No Changes since office visit: No Cold of Flu in the past 2 weeks, No New Medical Problems, No Changes in Medication and No Patient answered all questions The History & Physical has been completed within 30 days and I have reviewed it.: Yes Section B Chief Complaint: Lesion of ulnar nerve, left upper limb Allergies: Allergies Allergy/AdvReac Type Severity Reaction Status Date / Time latex Allergy Mild Unknown Verified 03/29/22 14:47 sumatriptan [From IMITREX] Allergy Mild N/V Verified 03/29/22 14:47 topiramate [From TOPAMAX] Allergy Mild HALLUCINATI Verified 03/29/22 14:47 ONS Plan I have reviewed the history and physical and performed a pertinent physical examination on my patient. No changes have occurred unless specified. Time Spent With Patient Time: Total time managing care of this patient today ____ minutes.
== END 2022-03-31 11:08 | disposition home or self-care (01) ==
PROVIDERS: PCP Internal Medicine; Visit Provider Orthopaedic Surgery
PROC: (CPT 64718; principal; 2022-03-31 07:30)
DX: G56.22 Lesion of ulnar nerve, left upper limb (principal); R53.83 Other fatigue; B00.9 Herpesviral infection, unspecified; G47.33 Obstructive sleep apnea (adult) (pediatric); E66.9 Obesity, unspecified; Z68.34 Body mass index [BMI] 34.0-34.9, adult; Z79.899 Other long term (current) drug therapy; Z88.8 Allergy status to other drugs, medicaments and biological substances; Z91.040 Latex allergy status; Z87.891 Personal history of nicotine dependence; Z98.890 Other specified postprocedural states
CPT/HCPCS: 64718; J0690; J1100; J2250; J2405; J2795; J3010

== ENCOUNTER 2022-04-05 15:23 | Outpatient (REF) | payer OTHER, SELFPAY ==
--- NOTE | ~2022-04-05 | XR_ITS ---
EXAMINATION: XR THORACIC SPINE CLINICAL INFORMATION: Pain in thoracic spine. COMPARISON: None TECHNIQUE: AP, lateral, and swimmer's views of the thoracic spine. FINDINGS: [id number] multilevel degenerative disc disease in the thoracic spine is most pronounced in the midthoracic spine, characterized by loss of intervertebral disc height, endplate osteophytes, and endplate sclerosis. No spondylolisthesis. Vertebral body heights are normal. Surrounding paraspinal soft tissues are unremarkable. Imaged lungs are clear. Cholecystectomy clips are present in the right upper quadrant. XR/XR thoracic spine 2V IMPRESSION: [id number] multilevel degenerative disc disease in the midthoracic spine. No acute osseous findings.
== END 2022-04-05 15:24 | disposition home or self-care (01) ==
LOC: HO.HMGCX 15:23
PROVIDERS: PCP Internal Medicine; Visit Provider Nurse Practitioner Family
DX: M54.6 Pain in thoracic spine (principal)
CPT/HCPCS: 72070

== ENCOUNTER → 2022-04-13 13:41 | Outpatient (BNVA) | payer OTHER, SELFPAY | PROVIDERS: PCP Internal Medicine; Visit Provider Orthopaedic Surgery | DX: Z13.89 Encounter for screening for other disorder (principal) | CPT/HCPCS: 99212 ==

== ENCOUNTER 2022-07-09 06:31 | Outpatient (REF) | payer OTHER, SELFPAY ==
[2022-07-09 11:07] LABS: MANUAL DIFF FLAG NO
[2022-07-09 11:09] LABS: Basophils Percent Auto 0.7 % (0-2); Eosinophils Absolute Auto 0.1 X10*3/uL (0.0-0.4); Eosinophils Percent Auto 2.1 % (0-4); Hematocrit 42.1 % (37.0-47.0); Hemoglobin 14.3 g/dl (12.0-16.0); Imm Gran Abs Auto 0.02 X10*3/uL (0.00-0.03); Imm Gran Pct Auto 0.4 % (0.0-0.4); Lymphocytes Absolute Auto 1.7 X10*3/uL (1.2-4.9); Lymphocytes Percent Auto 30.7 % (20-40); Mean Corpuscular Hemoglobin 30.6 pg (27.0-33.0); Mean Platelet Volume 9.1 fL (9.4-12.3); Monocytes Absolute Auto 0.6 X10*3/uL (0.1-1.2); Monocytes Percent Auto 10.8 % (2-11); Neutrophils Absolute Auto 3.1 x10*3/uL (2.0-8.3); Neutrophils Percent Auto 55.3 % (45-73); Platelet Count 297 X10*3/uL (160-400); Red Blood Count 4.68 X10*6/uL (4.20-5.50); Red Cell Distribution Width 12.4 % (11.0-16.0); White Blood Count 5.7 X10*3/uL (4.8-10.8)
[2022-07-09 11:31] LABS: Alanine Aminotransferase 45 U/L (0-31); Albumin Level 4.1 g/dL (3.5-5.0); Alkaline Phosphatase 114 U/L (39-117); Anion Gap 10 (12-20); Aspartate Amino Transferase 32 U/L (5-31); Bilirubin Total 0.6 mg/dL (0.0-1.0); Blood Urea Nitrogen 10 mg/dL (9-16); Calcium 9.3 mg/dL (8.4-10.2); Carbon Dioxide 28 mmol/L (22-29); Chloride 107 mmol/L (96-108); Cholesterol 183 mg/dL; Estimated Glomerular Filt Rate > 60; Glucose Fasting 111 mg/dL (60-99); HDL Cholesterol 54 mg/dL; LDL Cholesterol Calculated 97 mg/dl; Potassium 4.4 mmol/L (3.3-5.1); Sodium 141 mmol/L (135-145); Triglycerides 162 mg/dL
[2022-07-09 11:48] LABS: Thyroid Stimulating Hormone 0.61 uIU/mL (0.32-4.0)
== END 2022-07-09 06:32 | disposition home or self-care (01) ==
LOC: HO.HMGCLDS 06:31
PROVIDERS: PCP Internal Medicine; Visit Provider Internal Medicine
DX: E03.9 Hypothyroidism, unspecified (principal); R73.01 Impaired fasting glucose
CPT/HCPCS: 36415; 80053; 80061; 84443; 85025

== ENCOUNTER 2022-07-21 12:40 | Outpatient (REF) | payer OTHER, SELFPAY ==
--- NOTE | ~2022-07-21 | MR_ITS ---
EXAMINATION: MR BRAIN WITHOUT CONTRAST CLINICAL INFORMATION: Fatigue, memory issues, right-sided ear pain/headache, paresthesias, vision issues COMPARISON: None. TECHNIQUE: MRI of the brain was obtained using routine sequences without contrast. FINDINGS: Mild burden of nonspecific supratentorial white matter disease with T2 FLAIR hyperintense lesions in a subcortical and periventricular distribution. There are no lesions specific to underlying demyelinating disease. No lesions involving the corpus callosum or posterior fossa. No acute infarct. No acute intracranial hemorrhage or extra-axial fluid collection. The ventricles and sulci are normal in size and configuration without significant volume loss or hydrocephalus. No mass lesion, mass effect, or herniation pattern. Normal intracranial arterial and dural venous sinus flow voids. Normal appearance of the midline structures. The orbits are grossly unremarkable. Mild ethmoid air cell mucosal disease. No mastoid effusion. Normal marrow signal. Mild C4-C5 disc height loss with ventral and posterior disc osteophytes at this level. MR/MR head/brain wo con IMPRESSION: Mild burden of nonspecific supratentorial white matter disease. There are no lesions specific to underlying demyelinating disease, however this cannot be ruled out on the basis of this examination and can be correlated with CSF fluid sampling as clinically warranted.
== END 2022-07-21 12:41 | disposition home or self-care (01) ==
LOC: HO.MRI 12:40
PROVIDERS: PCP Internal Medicine; Visit Provider Psychiatry & Neurology Neurology
DX: G37.9 Demyelinating disease of central nervous system, unspecified (principal)
CPT/HCPCS: 70551; A9585

== ENCOUNTER → 2022-08-24 14:40 | Outpatient (BNVA) | payer OTHER, SELFPAY | PROVIDERS: Visit Provider Orthopaedic Surgery | DX: G56.22 Lesion of ulnar nerve, left upper limb (principal); R22.31 Localized swelling, mass and lump, right upper limb; Z98.890 Other specified postprocedural states | CPT/HCPCS: 99212 ==

== ENCOUNTER 2022-09-08 13:31 | Outpatient (REF) | payer OTHER, SELFPAY ==
--- NOTE | ~2022-09-08 | US_ITS ---
EXAMINATION: US RETROPERITONEAL LIMITED (RENAL ONLY) CLINICAL INFORMATION: Acute left-sided low back pain without sciatica. COMPARISON: CT abdomen and pelvis with contrast 12/27/2018. TECHNIQUE: Real-time imaging of the kidneys. Limited visualization due to bowel gas. FINDINGS: RIGHT KIDNEY: 11.0 x 3.7 x 5.7 cm (SAG x AP x TRV). No hydronephrosis. No renal calculi. Limited visualization. LEFT KIDNEY: 11.0 x 5.3 x 5.1 cm (SAG x AP x TRV). No hydronephrosis. No renal calculi. Limited visualization. US/US renal BI IMPRESSION: No hydronephrosis. No renal calculi. Limited visualization. CT scan should be considered for further evaluation
[2022-09-08 16:11] LABS: MANUAL DIFF FLAG NO
[2022-09-08 16:15] LABS: Basophils Percent Auto 0.7 % (0-2); Eosinophils Absolute Auto 0.1 X10*3/uL (0.0-0.4); Eosinophils Percent Auto 1.9 % (0-4); Hematocrit 42.1 % (37.0-47.0); Hemoglobin 14.4 g/dl (12.0-16.0); Imm Gran Abs Auto 0.01 X10*3/uL (0.00-0.03); Imm Gran Pct Auto 0.2 % (0.0-0.4); Lymphocytes Absolute Auto 1.8 X10*3/uL (1.2-4.9); Lymphocytes Percent Auto 30.3 % (20-40); Mean Corpuscular HGB Conc 34.2 g/dl (31.0-35.0); Mean Corpuscular Hemoglobin 30.4 pg (27.0-33.0); Mean Corpuscular Volume 88.8 fL (80.0-98.0); Mean Platelet Volume 9.1 fL (9.4-12.3); Monocytes Absolute Auto 0.7 X10*3/uL (0.1-1.2); Monocytes Percent Auto 11.2 % (2-11); Neutrophils Absolute Auto 3.3 x10*3/uL (2.0-8.3); Neutrophils Percent Auto 55.7 % (45-73); Platelet Count 288 X10*3/uL (160-400); Red Blood Count 4.74 X10*6/uL (4.20-5.50); Red Cell Distribution Width 12.3 % (11.0-16.0); White Blood Count 5.9 X10*3/uL (4.8-10.8)
[2022-09-08 16:26] LABS: Appearance Urine Clear; Color Urine Yellow; Glucose Urine UA Negative (Negative); Leukocyte Esterase Urine Negative (Negative); Nitrite Urine Negative (Negative); PH 5.5 (5.0-9.0); Specific Gravity - Urine 1.015 (1.005-1.025); Urine Blood Negative (Negative); Urine Ketones Negative (Negative); Urine Protein Negative (Neg-Trace)
[2022-09-08 16:41] LABS: Anion Gap 12 (12-20); Blood Urea Nitrogen 12 mg/dL (9-16); Calcium 9.6 mg/dL (8.4-10.2); Carbon Dioxide 26 mmol/L (22-29); Chloride 106 mmol/L (96-108); Estimated Glomerular Filt Rate > 60; Glucose Random 89 mg/dL (60-115); Potassium 3.6 mmol/L (3.3-5.1); Sodium 140 mmol/L (135-145)
== END 2022-09-08 13:32 | disposition home or self-care (01) ==
LOC: HO.HMGCX 13:31
PROVIDERS: PCP Internal Medicine; Visit Provider Internal Medicine
DX: M54.50 Low back pain, unspecified (principal)
CPT/HCPCS: 36415; 76775; 80048; 81003; 85025; 87086

== ENCOUNTER 2022-10-03 10:52 | Outpatient (REF) | payer OTHER, SELFPAY ==
--- NOTE | ~2022-10-03 | XR_ITS ---
EXAMINATION: XR CHEST CLINICAL INFORMATION: Cough. COMPARISON: None available. TECHNIQUE: 2 views of the chest were obtained. FINDINGS: Right pericardial opacity seen medially in the right lung base. The lungs otherwise clear. There are no pleural effusions. The heart and mediastinal structures are unremarkable. XR/XR chest 2V IMPRESSION: Probable right epicardial fat pad at the right lung base as detailed above without definitive acute cardiopulmonary process. If symptoms persist or worsen, short-term PA and lateral views of the chest are recommended as clinically indicated to assess for change as there is no previous chest radiographic study available for comparison.
[2022-10-03 13:31] LABS: MANUAL DIFF FLAG NO
[2022-10-03 13:46] LABS: Basophils Absolute Auto 0.1 X10*3/uL (0.0-0.2); Basophils Percent Auto 0.7 % (0-2); Eosinophils Absolute Auto 0.2 X10*3/uL (0.0-0.4); Eosinophils Percent Auto 3.3 % (0-4); Hematocrit 41.8 % (37.0-47.0); Hemoglobin 14.1 g/dl (12.0-16.0); Imm Gran Abs Auto 0.01 X10*3/uL (0.00-0.03); Imm Gran Pct Auto 0.1 % (0.0-0.4); Lymphocytes Percent Auto 29.8 % (20-40); Mean Corpuscular HGB Conc 33.7 g/dl (31.0-35.0); Mean Corpuscular Hemoglobin 30.3 pg (27.0-33.0); Mean Corpuscular Volume 89.9 fL (80.0-98.0); Mean Platelet Volume 9.3 fL (9.4-12.3); Monocytes Absolute Auto 0.7 X10*3/uL (0.1-1.2); Neutrophils Absolute Auto 3.8 x10*3/uL (2.0-8.3); Neutrophils Percent Auto 56.1 % (45-73); Platelet Count 323 X10*3/uL (160-400); Red Blood Count 4.65 X10*6/uL (4.20-5.50); Red Cell Distribution Width 12.6 % (11.0-16.0); White Blood Count 6.7 X10*3/uL (4.8-10.8)
[2022-10-03 14:15] LABS: Alanine Aminotransferase 21 U/L (0-31); Albumin Level 4.3 g/dL (3.5-5.0); Alkaline Phosphatase 99 U/L (39-117); Anion Gap 12 (12-20); Aspartate Amino Transferase 19 U/L (5-31); Bilirubin Total 0.3 mg/dL (0.0-1.0); Blood Urea Nitrogen 15 mg/dL (9-16); C Reactive Protein 0.14 mg/dL (< or = 0.50); Calcium 9.5 mg/dL (8.4-10.2); Carbon Dioxide 26 mmol/L (22-29); Chloride 107 mmol/L (96-108); Estimated Glomerular Filt Rate > 60; Glucose Random 92 mg/dL (60-115); Potassium 3.9 mmol/L (3.3-5.1); Sodium 141 mmol/L (135-145); Total Protein 6.7 g/dL (6.5-8.0)
== END 2022-10-03 10:53 | disposition home or self-care (01) ==
LOC: HO.HMGCX 10:52
PROVIDERS: PCP Internal Medicine; Visit Provider Internal Medicine
DX: R05.9 Cough, unspecified (principal)
CPT/HCPCS: 36415; 71046; 80053; 85025; 86140

== ENCOUNTER 2022-11-25 10:15 | Outpatient (REF) | payer OTHER, SELFPAY | END 2022-11-25 10:16 | disposition home or self-care (01) | LOC: HO.HMGCX 10:15 | PROVIDERS: PCP Internal Medicine; Visit Provider Internal Medicine | DX: R07.89 Other chest pain (principal) | CPT/HCPCS: 71046 ==

== ENCOUNTER 2023-02-03 07:51 | Day surgery (SDC) | payer OTHER, SELFPAY ==
[2023-02-01 10:11] VITALS: BMI 34.1
--- NOTE | 2023-02-02 11:58 | P.CONAN_ITS ---
Documented by User: Lidia Ahumada NP 02/02/23 11:58 HPI - Anesthesia Eval Consult details Narrative: 52yo F for Upper Endoscopy PMFSH Active Problems Active Problems: All Active Problems (Updated 02/01/23 @ 10:07 by Hailee Espitia RN) Mass of finger of right hand (Acute) Painful arc syndrome of right shoulder (Acute) Cubital tunnel syndrome on left (Acute) History of carpal tunnel release of both wrists (Acute) Calcific tendinitis of left shoulder (Acute) Left wrist sprain (Acute) Median nerve injury (Acute) Left elbow contusion (Acute) Sprain of left elbow (Acute) Elbow pain, left (Acute) Hx of neck injury (Acute) Left hand pain (Acute) Upper respiratory tract infection (Acute) Fatigue (Acute) IRIS (obstructive sleep apnea) (Acute) Obesity (Acute) Past Medical History Medical History Arthritis Elevated cholesterol GERD (gastroesophageal reflux disease) Fatigue IRIS (obstructive sleep apnea) Obesity Hx of migraine headaches HSV (herpes simplex virus) infection Insomnia Hypothyroid Depression Family History Family history of problems with anesthesia: No Surgical History Surgical History History of surgery Hx of colonoscopy History of tubal ligation [place] teeth extracted History of bilateral carpal tunnel release Hx of cholecystectomy History of Problems with Anesthesia: No Social History Social History Are you a primary progressive care unit registered nurse to a significant other at home: No Do you presently have visiting nurse or other home services: No Patient Tobacco Use Status: Former Tobacco user Second Hand Smoke Exposure: No Use of substances other than those prescribed or required for medical reasons: Yes Substance Use Type: Marijuana Substance Use Type Other:: gummies Are you DNR?: No Advance Directives: No Advance Directives Information Provided: Yes Advance Directives on File: No Current occupational status: employed 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 Meds Allergies Allergy/AdvReac Type Severity Reaction Status Date / Time sumatriptan [From IMITREX] Allergy Mild N/V Verified 08/24/22 15:30 topiramate [From TOPAMAX] Allergy Mild HALLUCINATI Verified 08/24/22 15:30 ONS latex Allergy Unknown Unknown Verified 02/01/23 10:08 Home Medications Medication Instructions Recorded Confirmed Last Taken Type yvhjehwltl-kbzaynuajdooq-bexvckah 1 tab PO DIRECTED PRN Migraine 06/01/20 02/03/23 Unknown History 50 mg-325 mg-40 mg tablet Headache levothyroxine 112 mcg tablet 1 tab PO DAILY 06/01/20 02/03/23 Unknown History nabumetone 500 mg tablet 1 tab PO BID 06/01/20 02/03/23 Unknown History omega-3 fatty acids 1,000 mg PO DAILY 06/01/20 02/03/23 Unknown History omeprazole 20 mg capsule,delayed 1 cap PO DAILY 06/01/20 02/03/23 Unknown History release valacyclovir 500 mg tablet 1 tab PO DAILY 06/01/20 02/03/23 Unknown History gabapentin 300 mg capsule 900 mg PO BEDTIME 11/23/20 02/03/23 Unknown History sertraline 50 mg tablet 75 mg PO DAILY 02/15/21 02/03/23 Unknown History estradiol-norethindrone acet 1 1 tab PO DAILY 08/24/22 02/03/23 Unknown History mg-0.5 mg tablet atorvastatin 20 mg tablet 20 mg PO DAILY 02/01/23 02/03/23 Unknown History propranolol 60 mg tablet 60 mg PO DAILY 02/01/23 02/03/23 Unknown History Exam Height,Weight and Vital Signs: Height 4 ft 10 in Weight 73.936 kg Assessment and Plan Assessment Anesthesia Assessment: Chart Reviewed Final Anesthetic Review Family History of Problems with Anesthesia: No History of Problems with Anesthesia: No Documented by User: Jesusita Brown MD 02/03/23 08:48 [facility] Past Medical History Medical History Arthritis Elevated cholesterol GERD (gastroesophageal reflux disease) Fatigue IRIS (obstructive sleep apnea) Obesity Hx of migraine headaches HSV (herpes simplex virus) infection Insomnia Hypothyroid Depression Surgical History Surgical History History of surgery Hx of colonoscopy History of tubal ligation [place] teeth extracted History of bilateral carpal tunnel release Hx of cholecystectomy Social History Social History Are you a primary progressive care unit registered nurse to a significant other at home: No Do you presently have visiting nurse or other home services: No Patient Tobacco Use Status: Former Tobacco user Second Hand Smoke Exposure: No Use of substances other than those prescribed or required for medical reasons: Yes Substance Use Type: Marijuana Substance Use Type Other:: gummies Are you DNR?: No Advance Directives: No Advance Directives Information Provided: Yes Advance Directives on File: No Current occupational status: employed 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 Meds Allergies Allergy/AdvReac Type Severity Reaction Status Date / Time sumatriptan [From IMITREX] Allergy Mild N/V Verified 08/24/22 15:30 topiramate [From TOPAMAX] Allergy Mild HALLUCINATI Verified 08/24/22 15:30 ONS latex Allergy Unknown Unknown Verified 02/01/23 10:08 Home Medications Medication Instructions Recorded Confirmed Last Taken Type yrxpjhcsvv-jfpdpdzkhxowt-amnjtjng 1 tab PO DIRECTED PRN Migraine 06/01/20 02/03/23 Unknown History 50 mg-325 mg-40 mg tablet Headache levothyroxine 112 mcg tablet 1 tab PO DAILY 06/01/20 02/03/23 Unknown History nabumetone 500 mg tablet 1 tab PO BID 06/01/20 02/03/23 Unknown History omega-3 fatty acids 1,000 mg PO DAILY 06/01/20 02/03/23 Unknown History omeprazole 20 mg capsule,delayed 1 cap PO DAILY 06/01/20 02/03/23 Unknown History release valacyclovir 500 mg tablet 1 tab PO DAILY 06/01/20 02/03/23 Unknown History gabapentin 300 mg capsule 900 mg PO BEDTIME 11/23/20 02/03/23 Unknown History sertraline 50 mg tablet 75 mg PO DAILY 02/15/21 02/03/23 Unknown History estradiol-norethindrone acet 1 1 tab PO DAILY 08/24/22 02/03/23 Unknown History mg-0.5 mg tablet atorvastatin 20 mg tablet 20 mg PO DAILY 02/01/23 02/03/23 Unknown History propranolol 60 mg tablet 60 mg PO DAILY 02/01/23 02/03/23 Unknown History Exam Airway Mallampati Class: II TM Dist: >3cm Neck ROM: Full Heart: rrr Lungs: cta Assessment and Plan Assessment Anesthesia Assessment: Anesthesia Plan Discussed Final Anesthetic Review NPO: Yes ASA Class: III Final Preanesthetic Review: No Changes in Pt Med Stat, Meds/Allgs Chart Reviewed, Consent Obtained/Reviewed and Anes Risks/Benef Reviewed Patient Risk: Intermediate Procedure Risk: Low Anesthetic Plan Anesthetic Plan: MAC: Disposition: Standard PACU
[2023-02-03 08:16] VITALS: BP 104/54; PULSE 53; RESP 16; TEMP 36.1; O2SAT 95; BMI 33.5
[2023-02-03] MEDS: Lactated Ringers 1,000 ML 100 ML IVCONT (08:38)
--- NOTE | 2023-02-03 09:26 | MHC.SHP ---
Pre-Procedural Eval Section A Date of Service: 02/03/23 Section B Chief Complaint: Epigastric pain,gerd, Details of Present Illness: see H&P no chasnges Relevant Family History (Specify if Yes): No Relevant Social History: None Present Medications: see Short Stay Collaborative assessment Medical History: No relevant PMH History of Previous Operations: No relevant previous surgery Allergies: Allergies Allergy/AdvReac Type Severity Reaction Status Date / Time sumatriptan [From IMITREX] Allergy Mild N/V Verified 08/24/22 15:30 topiramate [From TOPAMAX] Allergy Mild HALLUCINATI Verified 08/24/22 15:30 ONS latex Allergy Unknown Unknown Verified 02/01/23 10:08 Review of Systems Sugical H&P ROS: Negative: Constitution, Cardiovascular, Respiratory, Neurological, Psychiatric, Hem-Onc, Allergic/Immunologic, Gastrointestinal, Genitourinary, Musculoskeletal, Integumentary, Endocrine and Eyes/Ears/Nose/Throat Exam Surgical H&P Exam: Normal: HEENT, Normal: Heart, Normal: Lungs, Normal: Extremities, Normal: Abdomen, Normal: Skin and Normal: Neurological Plan Diagnosis/Plan: Unchanged I have reviewed the history and physical and performed a pertinent physical examination on my patient. No changes have occurred unless specified. Time Spent With Patient Time: Total time managing care of this patient today ____ minutes.
[2023-02-03 09:52] VITALS: BP 91/46; PULSE 60; RESP 18; TEMP 36.2; O2SAT 98
[2023-02-03 10:07] VITALS: BP 102/44; PULSE 62; RESP 18; TEMP 36.6; O2SAT 99
--- NOTE | 2023-02-03 10:27 | OP_ITS ---
DATE OF SERVICE: 02/03/2023 SURGEON: Patrick Frank MD INDICATIONS: Gastroesophageal reflux disease. PREOPERATIVE DIAGNOSIS: POSTOPERATIVE DIAGNOSIS: PROCEDURE PERFORMED: Upper endoscopy with biopsy. ESTIMATED BLOOD LOSS: COMPLICATIONS: ANESTHESIA: Monitored anesthesia care. ASSISTANTS: SPECIMENS: DESCRIPTION OF PROCEDURE: A history and physical was performed. The risks and benefits of the procedure were explained to the patient. Informed consent was obtained. The patient was placed in a left lateral decubitus position. The Olympus video gastroscope was introduced into the esophagus, stomach, and duodenum. Examination was performed. The scope was removed. She tolerated the procedure well and was returned to the recovery area in stable condition. FINDINGS: Esophagus: The esophagus showed irregular EG junction. This was biopsied. There was no esophagitis. Stomach: Stomach showed several small benign-appearing polyps in the body and fundus, consistent with fundic gland polyps. One of these was biopsied. Antral biopsies were obtained to rule out H pylori. Duodenum: The bulb and second portion were normal. IMPRESSION: 1. Gastroesophageal reflux disease. 2. Gastric polyps. RECOMMENDATION: Follow up the biopsy results. MD TAMIKA Rowley/DOMINIQUE / [id number]
== END 2023-02-03 10:42 | disposition home or self-care (01) ==
PROVIDERS: PCP Internal Medicine; Visit Provider Internal Medicine Gastroenterology
PROC: 0DJ08ZZ Inspection of Upper Intestinal Tract, Via Natural or Artificial Opening Endoscopic (ICD-10-PCS; CPT 43235; principal; 2023-02-03 09:50)
DX: K31.7 Polyp of stomach and duodenum (principal); K21.9 Gastro-esophageal reflux disease without esophagitis; E78.00 Pure hypercholesterolemia, unspecified; E03.9 Hypothyroidism, unspecified; G47.33 Obstructive sleep apnea (adult) (pediatric); Z99.89 Dependence on other enabling machines and devices; Z90.49 Acquired absence of other specified parts of digestive tract; Z87.891 Personal history of nicotine dependence; Z79.02 Long term (current) use of antithrombotics/antiplatelets; Z79.899 Other long term (current) drug therapy
CPT/HCPCS: 43239; 88305; 88342; J2704

== ENCOUNTER 2023-07-07 09:33 | Outpatient (AMB) | payer OTHER, SELFPAY ==
--- NOTE | 2023-07-07 09:39 | A.OFFVIS_ITS ---
Intake Visit Reasons: right shoulder injection (80) Intake Note: Arianne is a 51 year old right hand dominant female who presents today for a evaluation for her right shoulder pain, last inj 03/17/22. Patient reports her last injection gave her a about a year of relief and she would like to repeat. Allergies sumatriptan [From IMITREX] Allergy (Mild, Verified 07/07/23 09:50) N/V topiramate [From TOPAMAX] Allergy (Mild, Verified 07/07/23 09:50) HALLUCINATIONS latex Allergy (Unknown, Verified 07/07/23 09:50) Unknown HPI HPI right shoulder injection (80): Details: 52-year-old right hand dominant female who presents in the office today for a follow up of right shoulder pain. I last saw the patient in the office on 03/17/2022 when we discussed a referral to Pain Managment for a trigger point injection along the muscular aspect scapula or a referral to physical therapy, both were deferred at the time. While in the office today the patient reports her last injection gave her about a year of relief. She would like to repeat this today. Patient reports pain radiating into the anterior aspect of her chest on the right side towards the clavicle and in the scapular region. [facility] Medical History Arthritis Elevated cholesterol GERD (gastroesophageal reflux disease) Fatigue IRIS (obstructive sleep apnea) Obesity Hx of migraine headaches HSV (herpes simplex virus) infection Insomnia Hypothyroid Depression Surgical History History of surgery Hx of colonoscopy History of tubal ligation [place] teeth extracted History of bilateral carpal tunnel release Hx of cholecystectomy Social History Are you a primary acute care clinical nurse specialist to a significant other at home: No Do you presently have visiting nurse or other home services: No Patient Tobacco Use Status: Former Tobacco user Second Hand Smoke Exposure: No Substance Use Type: Marijuana Current occupational status: employed 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 No ecchymosis, erythema, or edema. Full shoulder ROM in all planes. Negative cross-body reach. Negative empty can. Negative drop arm. NVI. Psych Mental Status: mental status grossly normal Office Procedures Joint Injection/Drain Joint Injection/Drain Primary Site: right shoulder Prep: site was prepped using aseptic technique, ethochloride spray was applied and injection warnings given Injected: 80 mg of, DepoMedrol, with 8 mL of (2% plain lido ) and in the subcrom ial space Approach Used: posterolateral Procedure: The patient tolerated the procedure well, but had some pain with the injection and there was some relief with the local anesthesia Coding 77989 - Large joint Procedure code (CPT) selection complete Assessment & Plan Assessment & Plan (1) Painful arc syndrome of right shoulder: Code(s): M75.101 - Unspecified rotator cuff tear or rupture of right shoulder, not specified as traumatic Category: Medical Plan Savannah is a 52-year-old right hand dominant female who presents in the office today for a follow up of right shoulder pain. I last saw the patient in the office on 03/17/2022 when we discussed a referral to Pain Managment for a trigger point injection along the muscular aspect scapula or a referral to physical therapy, both were deferred at the time. While in the office today the patient reports her last injection gave her about a year of relief. She would like to repeat this today. Patient reports pain radiating into the anterior aspect of her chest on the right side towards the clavicle and in the scapular region. The patient was offered a cortisone injection in the right shoulder with 80 mg of DepoMedrol. The patient was explained the risk, benefits, and alternatives to receiving this injection. After receiving consent for the injection, the patient had the procedure done while in the office today. The patient tolerated the procedure well with no complications. Should the injection not give the patient relief the next step would be to refer her for further evaluation with Physiatry for possible myofascial pain. Follow up with Orthopedics will be PRN, or sooner if needed. Patient Instructions: Scribed by Lily Talley medical microbiologist, for Priyanka Harrison PA-C on 07/07/2023 at 9:57 am, EST. Coding Level of Care Code Est Pt Level 3 (11978) Diagnoses Painful arc syndrome of right shoulder M75.101 CPT Codes Coding - 47820 Large joint: 60915 - Large joint ([id number])
== END 2023-07-07 09:48 | disposition home or self-care (01) ==
PROVIDERS: PCP Internal Medicine; Visit Provider Physician Assistant
DX: M75.101 Unspecified rotator cuff tear or rupture of right shoulder, not specified as traumatic (principal)
CPT/HCPCS: 20610; 99213

== ENCOUNTER → 2023-07-07 09:33 | Outpatient (BNVA) | payer OTHER, SELFPAY | PROVIDERS: PCP Internal Medicine; Visit Provider Physician Assistant | DX: M75.101 Unspecified rotator cuff tear or rupture of right shoulder, not specified as traumatic (principal) | CPT/HCPCS: 20610; 99212; J1010 ==

== ENCOUNTER 2023-10-14 06:31 | Outpatient (REF) | payer OTHER, SELFPAY ==
[2023-10-14 11:13] LABS: MANUAL DIFF FLAG NO
[2023-10-14 11:17] LABS: Basophils Percent Auto 0.4 % (0-2); Eosinophils Absolute Auto 0.1 X10*3/uL (0.0-0.4); Eosinophils Percent Auto 2.9 % (0-4); Hematocrit 42.2 % (37.0-47.0); Hemoglobin 14.4 g/dl (12.0-16.0); Imm Gran Abs Auto 0.01 X10*3/uL (0.00-0.03); Imm Gran Pct Auto 0.2 % (0.0-0.4); Lymphocytes Absolute Auto 1.7 X10*3/uL (1.2-4.9); Lymphocytes Percent Auto 35.1 % (20-40); Mean Corpuscular HGB Conc 34.1 g/dl (31.0-35.0); Mean Corpuscular Hemoglobin 30.4 pg (27.0-33.0); Mean Corpuscular Volume 89.2 fL (80.0-98.0); Mean Platelet Volume 8.7 fL (9.4-12.3); Monocytes Absolute Auto 0.5 X10*3/uL (0.1-1.2); Monocytes Percent Auto 10.4 % (2-11); Neutrophils Absolute Auto 2.5 x10*3/uL (2.0-8.3); Platelet Count 280 X10*3/uL (160-400); Red Blood Count 4.73 X10*6/uL (4.20-5.50); Red Cell Distribution Width 12.5 % (11.0-16.0); White Blood Count 4.8 X10*3/uL (4.8-10.8)
[2023-10-14 11:49] LABS: Alanine Aminotransferase 20 U/L (0-31); Albumin Level 4.1 g/dL (3.5-5.0); Alkaline Phosphatase 79 U/L (39-117); Anion Gap 10 (12-20); Aspartate Amino Transferase 21 U/L (5-31); Bilirubin Total 0.4 mg/dL (0.0-1.0); Blood Urea Nitrogen 11 mg/dL (9-16); Calcium 9.3 mg/dL (8.4-10.2); Carbon Dioxide 25 mmol/L (22-29); Chloride 110 mmol/L (96-108); Cholesterol 155 mg/dL (<200); Estimated Glomerular Filt Rate > 60; Glucose Fasting 97 mg/dL (60-99); HDL Cholesterol 54 mg/dL (>40); LDL Cholesterol Calculated 83 mg/dL (<100); Sodium 141 mmol/L (135-145); Total Protein 6.1 g/dL (6.5-8.0); Triglycerides 90 mg/dL (<150)
[2023-10-14 12:06] LABS: Thyroid Stimulating Hormone 0.31 uIU/mL (0.32-4.0); Vitamin D 25-OH Total 68.1 ng/mL (>30)
== END 2023-10-14 06:32 | disposition home or self-care (01) ==
LOC: HO.HMGCLDS 06:31
PROVIDERS: PCP Internal Medicine; Visit Provider Internal Medicine
DX: Z00.00 Encounter for general adult medical examination without abnormal findings (principal); E78.00 Pure hypercholesterolemia, unspecified; E03.9 Hypothyroidism, unspecified; K21.9 Gastro-esophageal reflux disease without esophagitis; G43.009 Migraine without aura, not intractable, without status migrainosus; F41.9 Anxiety disorder, unspecified
CPT/HCPCS: 36415; 80053; 80061; 82306; 84443; 85025

== ENCOUNTER 2023-11-23 15:11 | Outpatient (AMB) | payer OTHER, SELFPAY ==
--- NOTE | 2023-11-23 15:23 | MHC.OFFVIS ---
Intake Visit Reasons: OV right shoulder Intake Note: Arianne is a 52 year old - hand dominant female who presents today for a follow up of her right shoulder pain, last injection 07/07/23. Patient reports she has been having pain when he tries to raise her arm above her head. She would like to discuss other treatment options today. Allergies sumatriptan [From IMITREX] Allergy (Mild, Verified 11/23/23 15:25) N/V topiramate [From TOPAMAX] Allergy (Mild, Verified 11/23/23 15:25) HALLUCINATIONS latex Allergy (Unknown, Verified 11/23/23 15:25) Unknown HPI HPI OV right shoulder: Details: 52-year-old right hand dominant female who presents in the office today for a follow-up of right shoulder pain. I last saw the patient in the office on 07/07/23 when she was given a cortisone injection in the right shoulder. We discussed that if the injection fails to provide relief, we would then refer her to Physiatry for further evaluation of possible myofascial pain. While in the office today, the patient reports experiencing right shoulder pain when she lifts her arm above her head. She would like to discuss other treatment options today. [facility] Medical History Arthritis Elevated cholesterol GERD (gastroesophageal reflux disease) Fatigue IRIS (obstructive sleep apnea) Obesity Hx of migraine headaches HSV (herpes simplex virus) infection Insomnia Hypothyroid Depression Surgical History History of surgery Hx of colonoscopy History of tubal ligation [place] teeth extracted History of bilateral carpal tunnel release Hx of cholecystectomy Social History Are you a primary laboratory animal caretaker to a significant other at home: No Do you presently have visiting nurse or other home services: No Patient Tobacco Use Status: Former Tobacco user Second Hand Smoke Exposure: No Substance Use Type: Marijuana Current occupational status: employed 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 No ecchymosis, erythema, or edema. Full shoulder ROM in all planes. Negative cross-body reach. Negative empty can. Negative drop arm. NVI. Psych Mental Status: mental status grossly normal Assessment & Plan Assessment & Plan (1) Painful arc syndrome of right shoulder: Code(s): M75.101 - Unspecified rotator cuff tear or rupture of right shoulder, not specified as traumatic Category: Medical Plan Ms. Arianne Nuñez is a 52-year-old right hand dominant female who presents in the office today for a follow-up of right shoulder pain. I last saw the patient in the office on 07/07/23 when she was given a cortisone injection in the right shoulder. We discussed that if the injection fails to provide relief, we would then refer her to Physiatry for further evaluation of possible myofascial pain. While in the office today, the patient reports experiencing right shoulder pain when she lifts her arm above her head. She would like to discuss other treatment options today. I have placed an order for an MRI of the right shoulder to further evaluate the integrity of the shoulder and the surrounding structures. The patient will contact the office to schedule a telehealth appointment once the MRI is obtained. Follow-up will be via telephone after the MRI is obtained, or sooner if needed. Orders: Orders MR shoulder RT wo con 11/23/23 M75.101 - Unspecified rotator cuff tear or rupture of right shoulder, not specified as traumatic Patient Instructions: Scribed by Jeannine West medical advisor, for Priyanka Harrison PA-C on 11/23/23 at 3:35 pm EST. Coding Level of Care Code Est Pt Level 4 (22124) Diagnoses Painful arc syndrome of right shoulder M75.101
== END 2023-11-23 15:41 | disposition home or self-care (01) ==
PROVIDERS: PCP Internal Medicine; Visit Provider Physician Assistant
DX: M75.101 Unspecified rotator cuff tear or rupture of right shoulder, not specified as traumatic (principal)
CPT/HCPCS: 99214

== ENCOUNTER → 2023-11-23 15:11 | Outpatient (BNVA) | payer OTHER, SELFPAY | PROVIDERS: PCP Internal Medicine; Visit Provider Physician Assistant | DX: M75.101 Unspecified rotator cuff tear or rupture of right shoulder, not specified as traumatic (principal) | CPT/HCPCS: 99212 ==

== ENCOUNTER 2024-01-04 13:08 | Outpatient (REF) | payer OTHER, SELFPAY ==
--- NOTE | ~2024-01-04 | MR_ITS ---
EXAMINATION: MR SHOULDER WITHOUT CONTRAST, RIGHT CLINICAL INFORMATION: Right shoulder pain and decreased range of motion. COMPARISON: Right shoulder radiographs dated 03/17/2022. TECHNIQUE: MRI of the shoulder without contrast was performed on a high-field scanner. FINDINGS: ROTATOR CUFF: Mild supraspinatus and infraspinatus tendinosis. Bursal surface partial tearing of the infraspinatus tendon measuring approximately 1.4 x 1.4 cm. Articular surface tendon fibers appear to remain intact. No full-thickness rotator cuff tendon tear. Teres minor muscle atrophy and fatty replacement. BICEPS: Small amount of fluid within the proximal long head biceps tendon sheath which may be related to small joint effusion or represent mild tenosynovitis. CORACOACROMIAL ARCH: The undersurface of the acromion is curved with no subacromial spur. Moderate acromioclavicular osteoarthritis. Fluid and edema within the subacromial-subdeltoid bursa, consistent with mild bursitis. LABRUM/CAPSULE: Linear fluid signal within the undersurface of the superior, posterosuperior, posterior, and posteroinferior labrum, consistent with nondisplaced undersurface tearing. Intact inferior joint capsule. GLENOHUMERAL JOINT/MARROW: Intact articular cartilage. No acute osseous injury. DELTOID: Edema within the lateral deltoid muscle, consistent with an acute strain. MR/MR shoulder RT wo con IMPRESSION: 1. Mild supraspinatus and infraspinatus tendinosis with bursal surface partial tearing of the infraspinatus tendon measuring 1.4 x 1.4 cm. Articular surface tendon fibers appear to remain intact. Teres minor muscle atrophy and fatty replacement. 2. Small amount of fluid within the proximal long head biceps tendon sheath which may be related to small joint effusion or represent mild tenosynovitis. 3. Moderate acromioclavicular osteoarthritis. 4. Mild subacromial-subdeltoid bursitis. 5. Nondisplaced undersurface tearing of the superior, posterosuperior, posterior, and posteroinferior labrum. 6. Acute strain of the lateral deltoid muscle. Electronically signed by: Sang Sylvester MD 01/16/2024 03:02 PM [facility]
== END 2024-01-04 13:09 | disposition home or self-care (01) ==
LOC: HO.MRI 13:08
PROVIDERS: PCP Internal Medicine; Visit Provider Physician Assistant
DX: M75.101 Unspecified rotator cuff tear or rupture of right shoulder, not specified as traumatic (principal)
CPT/HCPCS: 73221

== ENCOUNTER → 2024-03-28 12:41 | Outpatient (BNVA) | payer OTHER, SELFPAY | PROVIDERS: PCP Internal Medicine; Visit Provider Orthopaedic Surgery | DX: M75.101 Unspecified rotator cuff tear or rupture of right shoulder, not specified as traumatic (principal); S43.431A Superior glenoid labrum lesion of right shoulder, initial encounter; X58.XXXA Exposure to other specified factors, initial encounter; Y93.9 Activity, unspecified; Y92.9 Unspecified place or not applicable; Y99.9 Unspecified external cause status; Z71.2 Person consulting for explanation of examination or test findings | CPT/HCPCS: 20610; 99212; J0665; J1100; J2003 ==

== ENCOUNTER → 2024-03-28 12:41 | Outpatient (AMB) | payer OTHER, SELFPAY ==
--- NOTE | 2024-03-28 12:48 | A.OFFVIS_ITS ---
Intake Visit Reasons: OV -RT shoulder MRI review Intake Note: Arianne is a 53 year old right hand dominant female who presents today for an MRI review of her right shoulder. Patient was last seen with Priyanka Harrison who injected the right shoulder on 07/17/23. Patient reports increasing pain with ROM above the head. 1. Mild supraspinatus and infraspinatus tendinosis with bursal surface partial tearing of the infraspinatus tendon measuring 1.4 x 1.4 cm. Articular surface tendon fibers appear to remain intact. Teres minor muscle atrophy and fatty replacement. 2. Small amount of fluid within the proximal long head biceps tendon sheath which may be related to small joint effusion or represent mild tenosynovitis. 3. Moderate acromioclavicular osteoarthritis. 4. Mild subacromial-subdeltoid bursitis. 5. Nondisplaced undersurface tearing of the superior, posterosuperior, posterior, and posteroinferior labrum. 6. Acute strain of the lateral deltoid muscle Allergies sumatriptan [From IMITREX] Allergy (Mild, Verified 03/28/24 12:48) N/V topiramate [From TOPAMAX] Allergy (Mild, Verified 03/28/24 12:48) HALLUCINATIONS latex Allergy (Unknown, Verified 03/28/24 12:48) Unknown Medication List - Last Reconciled 03/28/24 by Ary Powers RN atorvastatin 20 mg PO DAILY 90 days vnuqzickna-sosuremmhujou-cwbw 50-325-40 mg 1 tab PO DIRECTED PRN estradiol-norethindrone acet 1-0.5 mg 1 tab PO DAILY gabapentin 900 mg PO BEDTIME levothyroxine 1 tab PO DAILY nabumetone 1 tab PO BID omega-3 fatty acids 1,000 mg PO DAILY omeprazole 40 mg PO DAILY 90 days propranolol 60 mg PO DAILY sertraline 75 mg PO DAILY valacyclovir 1 tab PO DAILY HPI HPI OV -RT shoulder MRI review: Details: Arianne is a 53-year-old woman who comes in today for MRI review of her right shoulder. She had an injection last June which was helpful but only for a few months. She states in the past injections have been more helpful. She states she had been having right shoulder pain for about a year. She states it occasionally bothers her at night and occasionally difficult to lie on it and she has discomfort at the end of a long work week. She has discomfort around the shoulder girdle including the anterior aspect of the right shoulder. She has not done physical therapy. [facility] Medical History Arthritis Elevated cholesterol GERD (gastroesophageal reflux disease) Fatigue IRIS (obstructive sleep apnea) Obesity Hx of migraine headaches HSV (herpes simplex virus) infection Insomnia Hypothyroid Depression Surgical History History of surgery Hx of colonoscopy History of tubal ligation [place] teeth extracted History of bilateral carpal tunnel release Hx of cholecystectomy Social History Are you a primary care coordinator to a significant other at home: No Do you presently have visiting nurse or other home services: No Patient Tobacco Use Status: Former Tobacco user Second Hand Smoke Exposure: No Substance Use Type: Marijuana Current occupational status: employed 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 There is some mild discomfort with empty can testing but she is strong. She has 35 degrees of external rotation and 90 degrees of abduction. She has 130 degrees of forward flexion and she can internally rotate to T10 with a negative lift-off. Office Procedures Joint Inj/Aspir; Non-Pain Clin Joint Injection/Drain Details: Injected 1 mL of Decadron and 3 mL 1% lidocaine and 3 mL of 0.25% Marcaine. Site was prepped using aseptic technique. Patient tolerated the procedure well. Shoulders, Hips, Knees, Shoulder Injection Large joint 89509: Right Shoulder Coding Procedure code (CPT) selection complete Results Reviewed Results Reviewed: I personally reviewed the MR images. 1. Mild supraspinatus and infraspinatus tendinosis with bursal surface partial tearing of the infraspinatus tendon measuring 1.4 x 1.4 cm. Articular surface tendon fibers appear to remain intact. Teres minor muscle atrophy and fatty replacement. 2. Small amount of fluid within the proximal long head biceps tendon sheath which may be related to small joint effusion or represent mild tenosynovitis. 3. Moderate acromioclavicular osteoarthritis. 4. Mild subacromial-subdeltoid bursitis. 5. Nondisplaced undersurface tearing of the superior, posterosuperior, posterior, and posteroinferior labrum. 6. Acute strain of the lateral deltoid muscle Assessment & Plan Assessment & Plan (1) Painful arc syndrome of right shoulder: Code(s): M75.101 - Unspecified rotator cuff tear or rupture of right shoulder, not specified as traumatic Category: Medical Plan: Arianne's 53-year-old woman with ongoing shoulder pain. Her MRI demonstrates some teres minor muscle atrophy and fatty replacement as well as a partial thickness bursal sided tear of the supra and infraspinatus. She has nondisplaced undersurface tearing of the labrum circumferentially and some fluid within the biceps sheath. All this combines for a painful shoulder but there is not 1 identifiable abnormality that should reliably be treated especially given that she has done no physical therapy yet. I injected her shoulder again today as last 1 was about 9 months ago and recommend physical therapy. After physical therapy she can return to see me. (2) Labral tear of shoulder: Code(s): S43.439A - Superior glenoid labrum lesion of unspecified shoulder, initial encounter Category: Medical Plan: Orders: Orders PT Evaluation and Treatment Today M75.101 - Unspecified rotator cuff tear or rupture of right shoulder, not specified as traumatic, S43.439A - Superior glenoid labrum lesion of unspecified shoulder, initial encounter Coding Level of Care Code Est Pt Level 3 (67774) Diagnoses Painful arc syndrome of right shoulder M75.101 Labral tear of shoulder S43.439A CPT Codes Shoulders, Hips, Knees, - Shoulder Injection Large joint 94338: Right Shoulder ([id number])
== END | disposition home or self-care (01) ==
PROVIDERS: PCP Internal Medicine; Visit Provider Orthopaedic Surgery
CPT/HCPCS: 20610; 99213

== ENCOUNTER → 2024-04-01 15:00 | Outpatient (BNVA) | payer OTHER, SELFPAY | PROVIDERS: PCP Internal Medicine; Visit Provider Internal Medicine | DX: M70.71 Other bursitis of hip, right hip (principal); E03.9 Hypothyroidism, unspecified | CPT/HCPCS: 99202 ==

== ENCOUNTER 2024-04-06 08:55 | Outpatient (REF) | payer OTHER, SELFPAY ==
--- NOTE | ~2024-04-06 | XR_ITS ---
EXAMINATION: XR HIP, RIGHT XR PELVIS CLINICAL INFORMATION: M70.71 - Other bursitis of hip, right hip; right hip pain. COMPARISON: None available. TECHNIQUE: AP pelvis, and 2 views of the right hip. FINDINGS: No fracture, dislocation, or suspicious bone lesion. Hip joints appear anatomically aligned and intact. The femoral heads are normal in contour without evidence of AVN. There is normal acetabular coverage bilaterally. There is enthesopathic spurring of the right greater trochanter, with lesser degree seen involving the left greater trochanter. Mild enthesopathy of the lateral iliac crests bilaterally. Soft tissues demonstrate no abnormalities. There are Essure implants in place. XR/XR hip RT min 2V IMPRESSION: 1. Normal-appearing bilateral hip joints. 2. Right greater than left enthesopathy of the greater trochanters. Electronically signed by: Federico Holt MD 04/09/2024 09:50 AM DIOMEDES
--- NOTE | ~2024-04-06 | XR_ITS ---
EXAMINATION: XR HIP, RIGHT XR PELVIS CLINICAL INFORMATION: M70.71 - Other bursitis of hip, right hip; right hip pain. COMPARISON: None available. TECHNIQUE: AP pelvis, and 2 views of the right hip. FINDINGS: No fracture, dislocation, or suspicious bone lesion. Hip joints appear anatomically aligned and intact. The femoral heads are normal in contour without evidence of AVN. There is normal acetabular coverage bilaterally. There is enthesopathic spurring of the right greater trochanter, with lesser degree seen involving the left greater trochanter. Mild enthesopathy of the lateral iliac crests bilaterally. Soft tissues demonstrate no abnormalities. There are Essure implants in place. XR/XR pelvis 1-2V IMPRESSION: 1. Normal-appearing bilateral hip joints. 2. Right greater than left enthesopathy of the greater trochanters. Electronically signed by: Federico Holt MD 04/09/2024 09:50 AM DIOMEDES
[2024-04-06 11:28] LABS: Hematocrit 42.6 % (37.0-47.0); Hemoglobin 14.8 g/dl (12.0-16.0); Mean Corpuscular HGB Conc 34.7 g/dl (31.0-35.0); Mean Corpuscular Hemoglobin 31.1 pg (27.0-33.0); Mean Corpuscular Volume 89.5 fL (80.0-98.0); Mean Platelet Volume 8.4 fL (9.4-12.3); Platelet Count 266 X10*3/uL (160-400); Red Blood Count 4.76 X10*6/uL (4.20-5.50); Red Cell Distribution Width 12.1 % (11.0-16.0); White Blood Count 5.4 X10*3/uL (4.8-10.8)
[2024-04-06 11:38] LABS: Appearance Urine Clear; Color Urine Yellow; Glucose Urine UA Negative (Negative); Leukocyte Esterase Urine Trace (Negative); Nitrite Urine Negative (Negative); UMIC TRIGGER UA YES; Urine Blood Negative (Negative); Urine Ketones Negative (Negative); Urine Protein Negative (Neg-Trace)
[2024-04-06 11:44] LABS: Bacteria Urine None Seen (None Seen); Hyaline Casts Urine 0-2 /LPF (0-2); RBC Urine 0-2 /HPF (0-2); Squamous Epithelial Cell Urine 0-2 /HPF (0-2); WBC Urine 0-5 /HPF (0-5)
[2024-04-06 12:04] LABS: Albumin Level 4.1 g/dL (3.5-5.0); Alkaline Phosphatase 93 U/L (39-117); Anion Gap 12 (12-20); Aspartate Amino Transferase 34 U/L (5-31); Bilirubin Direct 0.2 mg/dL (0.0-0.5); Bilirubin Total 0.4 mg/dL (0.0-1.0); Blood Urea Nitrogen 15 mg/dL (9-16); Calcium 9.6 mg/dL (8.4-10.2); Carbon Dioxide 27 mmol/L (22-29); Chloride 107 mmol/L (96-108); Cholesterol 173 mg/dL (<200); Estimated Glomerular Filt Rate > 60; Glucose Random 85 mg/dL (60-115); HDL Cholesterol 56 mg/dL (>40); LDL Cholesterol Calculated 96 mg/dL (<100); Potassium 4.2 mmol/L (3.3-5.1); Sodium 142 mmol/L (135-145); Thyroid Stimulating Hormone 1.11 uIU/mL (0.32-4.0); Total Protein 6.5 g/dL (6.5-8.0); Triglycerides 108 mg/dL (<150)
[2024-04-06 12:06] LABS: Alanine Aminotransferase 44 U/L (0-31)
== END 2024-04-06 08:56 | disposition home or self-care (01) ==
LOC: HO.HMGCX 08:55
PROVIDERS: PCP Internal Medicine; Visit Provider Internal Medicine
DX: M70.71 Other bursitis of hip, right hip (principal); E03.9 Hypothyroidism, unspecified
CPT/HCPCS: 36415; 72170; 73502; 80048; 80061; 80076; 81001; 84443; 85027

== ENCOUNTER → 2024-04-06 09:06 | Outpatient (BNV) | payer OTHER, SELFPAY | PROVIDERS: PCP Internal Medicine; Visit Provider Radiology Diagnostic Radiology | DX: M77.9 Enthesopathy, unspecified (principal); M70.71 Other bursitis of hip, right hip | CPT/HCPCS: 72170; 73502 ==

== ENCOUNTER 2024-05-02 15:31 | Outpatient (REF) | payer OTHER, SELFPAY ==
--- OUTSIDE RECORDS SUMMARY | 2024-05-02 19:05 | XMS_ITS ---
Author Organization [facility] Address [address] [place] [address] Care Team Providers Care Drop Wire Hanger Name Role Phone Pedro (RETIRED) Jeremi ORELLANA Primary Care Provid er Unavailable Patrick Frank Jr REASON FOR VISIT RE:RE:Olfactory hallucinations Encounters Encounter Location Date Provider Diagnosis [facility] [address] [place] [address] 07/25/2023 Patrick Frank Jr Plan Of Treatment Next Appt Details Provider Name:Patrick stahl Jr, 05/09/2024 03:55:00 PM, [address], [address], [place], [address], Progress Notes * NICOLAS CHAVEZ RDOB:[birth year] (52 yo F)Acc No.[id number]:07/25/2023 Patient:?NICOLAS CHAVEZ :1970???Age:52 Y???Sex:Female Address:[place], [address] * true * Date:? Generated for Printi ng/Farasg/eTransmitting on:?05/02/2024 07:05 PM EDT
--- OUTSIDE RECORDS SUMMARY | 2024-05-02 19:05 | XMS_ITS ---
Author Organization [facility] Address [address] [place] [address] Care Team Providers Care Injection Specialist Name Role Phone Pedro (RETIRED) Jeremi ORELLANA Primary Care Provid er Unavailable Patrick Frank Jr Unavailable [phone] Allergies Allergen (clinical drug ingredient) Drug/Non Drug Allergy documented on EMR Reaction Allergy Type Onset Date Status topiramate Topamax Unknown Drug Allergy Active sumatriptan Imitrex Unknown Drug Allergy Activ e Latex latex (uncoded) Unknown Allergy Acti ve REASON FOR VISIT patient presents today for barretts esophagus Medications Medication SIG (Take, Route, Frequency, Duration) Notes Start Date End Date Status Yohipuwtve-IFMP-Ohcjdyez 50-325-40 MG Oral for 10 Active Propranolol HCl 60 MG Oral for 90 Active Estradiol 10 MCG Vaginal for 84 Active Omeprazole 40 MG Oral for 90 A ctive Sertraline HCl 100 MG Oral for 30 Active valACYclovir HCl 500 MG Oral for 30 Active Atorvastatin Calcium 20 MG Oral for 90 Active Magnesium Active Tylenol PM Extra Strength 500-25 MG 1 tablet at bedtime as needed Orally Once a day for 30 day(s) Active Levothyroxine Sodium Active Social History Alcohol Screen Question Answer Notes Did you have a drink containing alcohol in the p ast year? No Points 0 Interpretation Negative Problems Problem Type SNOMED Code ICD Code Onset Dates Problem Status W/U Status Risk Notes Problem 646341782 Koehler's esophagus without dysplasia (K22.70) Active confirmed Vital Signs Temperature 97.7 degrees Fahrenheit 05/11/19 24 Blood pressure systolic 00 mm Hg 05/11/19 24 Blood pressure diastolic 00 mm Hg 024 Height 59.5 in 05/11/2023 Weight 152 lbs 05/11/2023 BMI 30.18 kg/m2 05/11/2023 Encounters Encounter Location Date Provider Diagnosis [facility] [address] [place] [address] 05/11/2023 Patrick Frank Jr Koehler's esophagus without dysplasia K22.70 Assessments Encounter Date Diagnosis (ICD Code) Assessment Notes Treatment Notes Treatment Clinical Notes Section Notes 05/11/2023 Koehler's esophagus without dysplasia (ICD-10 - K22.70) Koehler esophagus material was printed We discussed Koehler's esophagus and gastroesophageal reflux disease today. We discussed diet, lifestyle modifications, and weight management regarding the treatment of reflux. We discussed the use of proton pump inhibitors. She will continue her present medical regimen. We will see her in followup in one year. Repeat endoscopy was recommended in 2 years. Plan Of Treatment Treatment Notes Assessment Notes Koehler's esophagus without dysplasia Ba rrett esophagus material was printed Next Appt Details Follow Up: 1 Year, Reason: Provider Name:Patrick stahl Jr, 05/09/2024 03:55:00 PM, [address] [facility] [address] [facility], [address], [place], [address], Progress Notes * JOSEF CHAVEZELLE RDOB:[birth year] (52 yo F)Acc No.[id number]:05/11/2023 Progress Notes Patient:?ARIANNE CHAVEZ Provider:?Patrick Frank MD :1970???Age:52 Y???Sex:Female D ate:05/11/2023 Address:[address] [place], [place] [address] [facility] Pcp:Jeremi Vasquez, DO Subjective: * Chief Complaints: * ???1. Patient presents today for barretts esophagus. * HPI: ???New symptom(s):? Arianne is a pleasant 52-year-old woman seen today in followup. She underwent upper endoscopy in January 2023 for evaluation of gastroesophageal reflux disease. Changes of Koehler's esophagus were noted at the EG junction without dysplasia. We reviewed this today. ?She reports reflux symptoms are under good control on omeprazole 40 mg daily. She has no dysphagia, hematemesis, or melena. * Medical History:?Depression, Hypothyroidism, Insomnia, HSV infection, Gastroesophageal reflux disease, Arthritis, Hyperlipidemia, Migraines, Colonoscopy 06/10, ten-year followup, Koehler's esophagus, EGD 02/11, irregular EG junction focal intestinal metaplasia at the EG junction, no dysplasia, gastric biopsies negative for H. pylori. * Surgical History:?cholecyste ctomy 2001, carpal tunnel release x 2-one in each hand , wisdom teeth extraction , cubital tunnel release 04/14. * Family History:?Father: dece ased 46 yrs.?Mother: alive.?Maternal Grand Father: diagnosed with Heart disease.? no known hx of colon ca. * Social History:?Tobacco Use:?Tobacco Use/Smoking?Patient is a: former smoker , How long has it been since you last smoked?: > 10 years.?Drugs/Alcohol:?Alcohol Screen?Did you have a drink containing alcohol in the past year??No,?Points?0,?Interpretation?Negative.?Miscellaneous:?Marital status: single. 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 * Medications:?Taking Tylenol PM Extra Strength 500-25 MG Tablet 1 tablet at bedtime as needed Orally Once a day, Taking Levothyroxine Sodium , Taking Magnesium , Taking Atorvastatin Calcium 20 MG Tablet Oral , Taking valACYclovir HCl 500 MG Tablet Oral , Taking Sertraline HCl 100 MG Tablet Oral , Taking Omeprazole 40 MG Capsule Delayed Release Oral , Taking Vsxxghnjfi-IMOX-Krmaeqrx 50-325-40 MG Tablet Oral , Taking Estradiol 10 MCG Tablet Vaginal , Taking Propranolol HCl 60 MG Tablet Oral , Discontinued Gabapentin 300 MG Capsule 1 tablet Orally Once a day, Discontinued Prozac 10 mg 10 mg alt with 20 mg, Discontinued Vitamin B Complex , Discontinued Ibuprofen 800 MG Tablet Oral , Medication List reviewed and reconciled with the patient * Allergies:?Imitrex, Topamax, latex. Objective: * Vitals:?Wt: 152 lbs, Ht: 59. 5 in, BMI:30.18 Index, BP: 00/00 mm Hg, Temp: 97.7. * Examination: ???General Examination: ???On examination today, she appears well. Skin is anicteric. Lungs are clear. Heart shows regular rate and rhythm. Abdomen is soft without focal masses or tenderness. Extremities are without edema. Assessment: * Assessment: 1.?Koehler's esophagus witho ut dysplasia - K22.70 (Primary)? We discussed Koehler's esoph julito and gastroesophageal reflux disease today. We discussed diet, lifestyle modifications, and weight management regarding the treatment of reflux. We discussed the use of proton pump inhibitors. She will continue her present medical regimen. We will see her in followup in one year. Repeat endoscopy was recommended in 2 years. Plan: * Treatment: * Procedure Codes:?3017F COLOR ECTAL CA SCREEN DOC REV, G9903 Pt scrn tbco id as non user, G9745 DOC RSN FOR NOT SCREEN/REC F/U HBP * Preventive Medicine:? ??Counseling:?Care goal follow-up plan:?Above Normal BMI Follow-up?Giving encouragement to exercise,?BMI management provided?Yes.? * Follow Up:?1 Year * * Sign off status: Completed true * Provider:?Patrick Frank MD Date:?0 05/11/2023 Generated for [employer] tatiana/Roman/eTransmitting on:?05/02/2024 07:05 PM EDT History and Physical Notes * HPI (History of Present Illness) Category Sub-Category Detail Notes Category Not es New symptom(s) Arianne is a pleasant 52-year-old woman seen today in followup. She underwent upper endoscopy in January 2023 for evaluation of gastroesophageal reflux disease. Changes of Koehler's esophagus were noted at the EG junction without dysplasia. We reviewed this today. She reports reflux symptoms are under good control on omeprazole 40 mg daily. She has no dysphagia, hematemesis, or melena. Examination Category Sub-Category Detail Notes Category Not es General Examination On exami [facility] today, she appears well. Skin is anicteric. Lungs are clear. Heart shows regular rate and rhythm. Abdomen is soft without focal masses or tenderness. Extremities are without edema.
--- OUTSIDE RECORDS SUMMARY | 2024-05-02 19:05 | XMS_ITS | Patient Health Record ---
Author Organization [facility] Address [address] [place] [address] Care Team Providers Care District Wildlife Manager Name Role Phone Pedro (RETIRED) Jeremi ORELLANA Primary Care Provid er Unavailable Patrick Frank Jr Unavailable Allergies Allergen (clinical drug ingredient) Drug/Non Drug Allergy documented on EMR Reaction Allergy Type Onset Date Status topiramate Topamax Unknown Drug Allergy Active sumatriptan Imitrex Unknown Drug Allergy Activ e Latex latex (uncoded) Unknown Allergy Acti ve Reason For Referral No Information Medications Medication SIG (Take, Route, Frequency, Duration) Notes Start Date End Date Status Znggddrgyh-DYXS-Ofnhqtoq 50-325-40 MG Oral for 10 Active Omeprazole 40 MG Oral for 90 A ctive Sertraline HCl 100 MG Oral for 30 Active valACYclovir HCl 500 MG Oral for 30 Active Tylenol PM Extra Strength 500-25 MG 1 tablet at bedtime as needed Orally Once a day for 30 day(s) Active Propranolol HCl 60 MG Oral for 90 Active Estradiol 10 MCG Vaginal for 84 Active Levothyroxine Sodium Active Atorvastatin Calcium 20 MG Oral for 90 Active Magnesium Active Immunizations Vaccine Route Administration Date Status Comme nts Influenza Unknown 12/04/2022 Administered Social History Alcohol Screen Question Answer Notes Did you have a drink containing alcohol in the p ast year? No Points 0 Interpretation Negative Problems Problem Type SNOMED Code ICD Code Onset Dates Problem Status W/U Status Risk Notes Problem 583122186 Colon cancer screening (Z12.11) Active confirmed Problem 92320195 Epigastric pain (R10.13) Active confirmed Problem 576129876 Koehler's esophagus without dysplasia (K22.70) Active confirmed Problem Gastroesophageal reflux disease (425753458) Gastroesophageal reflux disease (K21.9) Active confirmed Problem 215709777 Change in bowel function (R19.4) Active confirmed Problem 391245212 Long-term curren t use of high risk medication other than anticoagulant (Z79.899) Active confirmed Problem 094053804 Gastroesophageal reflux disease, unspecified whether esophagitis present (K21.9) Active confirmed Vital Signs Temperature 97.7 degrees Fahrenheit 05/11/2023 Blood pressure diastolic 00 mm Hg 05/11/2023 Height 59.5 in 05/11/2023 Blood pressure systolic 00 mm Hg 05/11/2023 Weight 152 lbs 05/11/2023 BMI 30.18 kg/m2 05/11/2023 Encounters Encounter Location Date Provider Diagnosis [facility] [address] [place] [address] 05/11/2023 Patrick Frank Jr Koehler's esophagus without dysplasia K22.70 [facility] [address] [place] [address] [place] [address] 07/20/2023 Patrick Frank Jr [facility] [address] [place] [address] [address] [place] [address] 07/25/2023 Patrick Frank Jr Assessments Encounter Date Diagnosis (ICD Code) Assessment [...] recommended in 2 years. Plan Of Treatment Future Test Test Name Order Date COLONOSCOPY 02/03/2016 COLONOSCOPY 03/05/2020 UPPER GI ENDOSCOPY 12/05/2022 Next Appt Details Provider Name:Patrick stahl Jr, 05/09/2024 03:55:00 PM, [address] [place] [address], [address], [place], [address], Insurance Providers Payer Name Payer Address Payer Phone Subscriber Number Group Number Insured Name Patient Relationship to Insured Coverage Start Date Coverage End Date [facility] [address] [address] [place], [place] [id number] NICOLAS CHAVEZ Self - patient is the insured Medical (General) History Medical History History ICD Code Depression Hypothyroidism Insomnia HSV infection Gastroesophageal reflux disease Arthritis Hyperlipidemia Migraines Colonoscopy 06/10, ten-year followup Koehler's esophagus, EGD , irregular EG junction focal intestinal metaplasia at the EG junction, no dysplasia, gastric biopsies negative for H. pylori Surgical History Surgery Date(Month/Year) cholecystectomy 2001 carpal tunnel release x 2-one in each [place] [address] wisdom teeth extraction cubital tunnel release 04/14
--- OUTSIDE RECORDS SUMMARY | 2024-05-02 19:06 | XMS_ITS ---
Author Organization [facility] Address [address] [place] [address] Care Team Providers Care Health Assistant Name Role Phone Pedro (RETIRED) Jeremi ORELLANA Primary Care Provid er Unavailable Zac Newell, Patrick Herrera [phone] REASON FOR VISIT Olfactory hallucinations Encounters Encounter Location Date Provider Diagnosis [facility] [address] [place] [address] 07/20/2023 Patrick Frank Jr Plan Of Treatment Next Appt Details Provider Name:Patrick stahl Jr, 05/09/2024 03:55:00 PM, [address], [address], [place], [address], Progress Notes * NICOLAS CHAVEZ RDOB:[birth year] (52 yo F)Acc No.[id number]:07/20/2023 Patient:?NICOLAS CHAVEZ :1970???Age:52 Y???Sex:Female Address[place] [place], [address] * true * Date:? Generated for Printi ng/Faxing/eTransmitting on:?05/02/2024 07:05 PM EDT
== END 2024-05-02 15:32 | disposition home or self-care (01) ==
LOC: HO.MAMMO 15:31
PROVIDERS: PCP Internal Medicine; Visit Provider Internal Medicine
DX: Z12.31 Encounter for screening mammogram for malignant neoplasm of breast (principal)
CPT/HCPCS: 77063; 77067

== ENCOUNTER → 2024-05-02 15:45 | Outpatient (BNV) | payer OTHER, SELFPAY | PROVIDERS: PCP Internal Medicine; Visit Provider Internal Medicine | DX: Z12.31 Encounter for screening mammogram for malignant neoplasm of breast (principal) | CPT/HCPCS: 77063; 77067 ==

== ENCOUNTER 2024-05-06 14:22 | Outpatient (AMB) | payer OTHER, SELFPAY ==
--- NOTE | 2024-05-06 14:28 | A.OFFVIS_ITS ---
Vital Signs 05/06/24 14:33 Height 4 ft 9 in Weight 152 lb BMI 32.9 Intake Visit Reasons: Newprob-Other bursitis of hip, right hip Intake Note: Arianne is a 53 year old female who presents today for a new problem visit for evaluation of right hip pain. No hx of injury. Patient reports on going pain for many months. She states that her pain in on the lateral aspect of the hip and when she is walking her pain moves to the groin area. Patient notices that her pain is worse when she is standing and walking for more than a hour. She has tried Tylenol, Tylenol Arthritis, Icing and cyclobenzaprinen with no relief. Allergies sumatriptan [From IMITREX] Allergy (Mild, Verified 05/06/24 14:33) N/V topiramate [From TOPAMAX] Allergy (Mild, Verified 05/06/24 14:33) HALLUCINATIONS latex Allergy (Unknown, Verified 05/06/24 14:33) Unknown [facility] Medical History (Updated 05/06/24 @ 15:22 by Priyanka Harrison PA-C) Arthritis Elevated cholesterol GERD (gastroesophageal reflux disease) Fatigue IRIS (obstructive sleep apnea) Obesity Hx of migraine headaches HSV (herpes simplex virus) infection Insomnia Hypothyroid Depression Surgical History History of surgery Hx of colonoscopy History of tubal ligation [place] teeth extracted History of bilateral carpal tunnel release Hx of cholecystectomy Social History Are you a primary adult daycare coordinator to a significant other at home: No Do you presently have visiting nurse or other home services: No Patient Tobacco Use Status: Former Tobacco user Second Hand Smoke Exposure: No Substance Use Type: Marijuana Current occupational status: employed 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 No ecchymosis, erythema, or edema. Full hip ROM in all planes but reports groin pain with internal and external rotation. Tend erness to palpation over the greater trochanteric bursa. 5/5 strength with resisted hip flexion, knee extension, abduction, and abduction. Able to perform straight leg raise. NVI. Office Procedures AMB Joint Injection/Aspiration Joint Injection/Aspiration Primary Site: other (Right greater trochanteric bursa) Prep: site was prepped using aseptic technique, ethochloride spray was applied and injection warnings given Injected: 80 mg of, DepoMedrol and with 8 mL of (2% plain lidocaine) Approach Used: other (Lateral) Procedure: The patient tolerated the procedure well, but had some pain with the injection and there was some relief with the local anesthesia Coding - Glenohumeral/Tronchanteric Bursa/Intraarticular Procedure code (CPT) selection complete Assessment & Plan Assessment & Plan (1) Greater trochanteric bursitis of right hip: Code(s): M70.61 - Trochanteric bursitis, right hip Category: Medical Plan The patient was offered a cortisone injection in the right hip greater trochanteric bursa with 80 mg of DepoMedrol. The patient was explained the risks, benefits, and alternatives to receiving this injection. After receiving consent for the injection, the patient had the procedure done while in the office today. The patient tolerated the procedure well with no complications. Patient would also like to attempt an intra-articular joint injection to see if this helps with the deep groin pain that she is experiencing. This will be arranged at the hospital under imaging guidance. Follow-up will be p.r.n., or sooner if needed X-rays of the right hip which were obtained 04/06/2024 and were reviewed by me, Priyanka Harrison PA-C, revealed no acute fracture or dislocation. Orders: Orders FL Guided Asp Inj Major Jt RT Today M16.11 - Unilateral primary osteoarthritis, right hip Coding Level of Care Code Est Pt Level 4 (74461) Diagnoses Greater trochanteric bursitis of right hip M70.61 CPT Codes Coding - Joint 7: 52879 - Glenohumeral/Tronchanteric Bursa/Intraarticular ([id number])
[2024-05-06 14:33] VITALS: BMI 32.9
--- OUTSIDE RECORDS SUMMARY | 2024-05-06 16:50 | XMS_ITS ---
Author Organization [facility] Address [address] [place] [address] Care Team Providers Care Bowling Ball Assembler Name Role Phone Pedro (RETIRED) Jeremi ORELLANA Primary Care Provid er Unavailable Patrick Frank Jr Unavailable [phone] Allergies Allergen (clinical drug ingredient) Drug/Non Drug Allergy documented on EMR Reaction Allergy Type Onset Date Status topiramate Topamax Unknown Drug Allergy Active sumatriptan Imitrex Unknown Drug Allergy Activ e Latex latex (uncoded) Unknown Allergy Acti ve REASON FOR VISIT patient presents today for barretts esophagus Medications Medication SIG (Take, Route, Frequency, Duration) Notes Start Date End Date Status Piepxjygrn-NWZJ-Pxdshdpp 50-325-40 MG Oral for 10 Active Propranolol [...] Problem Status W/U Status Risk Notes Problem 953396690 Koehler's esophagus without dysplasia (K22.70) Active confirmed Vital Signs Temperature 97.7 degrees Fahrenheit 05/11/19 24 Blood pressure systolic 00 mm Hg 05/11/19 24 Blood pressure diastolic 00 mm Hg 024 Height 59.5 in 05/11/2023 Weight 152 lbs 05/11/2023 BMI 30.18 kg/m2 05/11/2023 Encounters Encounter Location Date Provider Diagnosis [facility] [address] [place] [address] 05/11/2023 Patrick Frank Jr Koehler's esophagus without [...] Jr, 05/09/2024 03:55:00 PM, [address], [address], [place], [address], Progress Notes * JOSEF CHAVEZELLE RDOB:[birth year] (52 yo F)Acc No.[id number]:05/11/2023 Progress Notes Patient:?ARIANNE CHAVEZ Provider:?Patrick Frank MD :1970???Age:52 Y???Sex:Female D ate:05/11/2023 Address:[address] [place], [place] [id number] Pcp:Jeremi Vasquez, DO Subjective: * Chief Complaints: [...] in the past year??No,?Points?0,?Interpretation?Negative.?Miscellaneous:?Marital status: single. 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 * Medications:?Taking Tylenol PM Extra Strength 500-25 MG Tablet 1 tablet at bedtime as needed Orally Once a day, Taking Levothyroxine Sodium , Taking Magnesium , Taking Atorvastatin Calcium 20 MG Tablet Oral , Taking valACYclovir HCl 500 MG Tablet Oral , Taking Sertraline HCl 100 MG Tablet Oral , Taking Omeprazole 40 MG Capsule Delayed Release Oral , Taking Kbcddrvgpy-VYCS-Ecinjelp 50-325-40 MG Tablet Oral , Taking Estradiol [...] Provider:?Patrick Frank MD Date:?0 05/11/2023 Generated for [facility] tatiana/Roman/eTransmitting on:?05/06/2024 04:50 PM EDT History and Physical Notes * [...] Category Not es General Examination On exam[facility] [place] [facility] today, she appears well. Skin is anicteric. Lungs are clear. Heart shows regular rate and rhythm. Abdomen is soft without focal masses or tenderness. Extremities are without edema.
--- OUTSIDE RECORDS SUMMARY | 2024-05-06 16:51 | XMS_ITS ---
Author Organization [facility] Address [address] [place] [address] Care Team Providers Care Chemical Analytical Sampler Name Role Phone Pedro (RETIRED) Jeremi ORELLANA Primary Care Provid er Unavailable Zac Newell, Patrick Herrera REASON FOR VISIT Olfactory hallucinations Encounters Encounter Location Date Provider Diagnosis [facility] [address] [place] [address] 07/20/2023 Patrick Frank Jr Plan Of Treatment Next Appt Details Provider Name:Patrick stahl Jr, 05/09/2024 03:55:00 PM, [address], [address], [place], [address], Progress Notes * NICOLAS CHAVEZ RDOB:[birth year] (52 yo F)Acc No.[id number]:07/20/2023 Patient:?NICOLAS CHAVEZ :1970???Age:52 Y???Sex:Female Address:[place], [address] * true * Date:? Generated for Printi ng/Faxing/eTransmitting on:?05/06/2024 04:51 PM EDT
--- OUTSIDE RECORDS SUMMARY | 2024-05-06 16:51 | XMS_ITS ---
Author Organization [facility] Address [address] [place] [address] Care Team Providers Care Hydraulic Auto Jack Mechanic Name Role Phone Pedro (RETIRED) Jeremi ORELLANA Primary Care Provid er Unavailable Patrick Frank Jr [phone] REASON FOR VISIT RE:RE:Olfactory hallucinations Encounters Encounter Location Date Provider Diagnosis [facility] [address] [place] [address] 07/25/2023 Patrick Frank Jr Plan Of Treatment Next Appt Details Provider Name:Patrick stahl Jr, 05/09/2024 03:55:00 PM, [address], [address], [place], [address], Progress Notes * NICOLAS CHAVEZ RDOB:[birth year] (52 yo F)Acc No.[id number]:07/25/2023 Patient:?NICOLAS CHAVEZ :1970???Age:52 Y???Sex:Female Address:[place], [address] * true * Date:? Generated for Printi ng/Farasg/eTransmitting on:?05/06/2024 04:51 PM EDT
--- OUTSIDE RECORDS SUMMARY | 2024-05-06 16:51 | XMS_ITS | Patient Health Record ---
Author Organization [facility] Address [address] [place] [address] Care Team Providers Care Director Of Construction Name Role Phone Pedro (RETIRED) Jeremi ORELLANA [...] Duration) Notes Start Date End Date Status Afhdrwjqcg-TORT-Exegolpg 50-325-40 MG Oral for 10 Active Omeprazole [...] Problem Status W/U Status Risk Notes Problem 511794350 Colon cancer screening (Z12.11) Active confirmed Problem 02055179 Epigastric pain (R10.13) Active confirmed Problem 730874102 Koehler's esophagus without dysplasia (K22.70) Active confirmed Problem Gastroesophageal reflux disease (198596942) Gastroesophageal reflux disease (K21.9) Active confirmed Problem 052082471 Change in bowel function (R19.4) Active confirmed Problem 942664380 Long-term curren t use of high risk medication other than anticoagulant (Z79.899) Active confirmed Problem 905147122 Gastroesophageal reflux disease, unspecified whether esophagitis present (K21.9) Active confirmed Vital Signs Temperature 97.7 degrees Fahrenheit 05/11/2023 Blood pressure diastolic 00 mm Hg 05/11/2023 Height 59.5 in 05/11/2023 Blood pressure systolic 00 mm Hg 05/11/2023 Weight 152 lbs 05/11/2023 BMI 30.18 kg/m2 05/11/2023 Encounters Encounter Location Date Provider Diagnosis [facility] [address] [place] [address] 05/11/2023 Patrick Frank Jr Koehler's esophagus without dysplasia K22.70 [facility] [address] [place] [address] [place] [address] 07/20/2023 Patrick Frank Jr [facility] [address] [place] [address] Drive [address] [place] [address] 07/25/2023 Patrick Frank Jr Assessments Encounter Date [...] Provider Name:Patrick stahl Jr, 05/09/2024 03:55:00 PM, [address] [place] [address], [address], [place], [address], Insurance Providers Payer Name Payer Address Payer Phone Subscriber Number Group Number Insured Name Patient Relationship to Insured Coverage Start Date Coverage End Date [facility] [address] [address] [place], [place] [id number] NICOLAS CHAVEZ Self - patient is the [...]
== END 2024-05-06 15:15 | disposition home or self-care (01) ==
LOC: HO.HOS 14:22
PROVIDERS: PCP Internal Medicine; Visit Provider Physician Assistant
DX: M70.61 Trochanteric bursitis, right hip (principal)
CPT/HCPCS: 20610; 99214

== ENCOUNTER → 2024-05-06 14:22 | Outpatient (BNVA) | payer OTHER, SELFPAY | PROVIDERS: PCP Internal Medicine; Visit Provider Physician Assistant | DX: M70.61 Trochanteric bursitis, right hip (principal) | CPT/HCPCS: 20610; 99212; J1010; J2003 ==

== ENCOUNTER 2024-05-16 12:48 | Outpatient (REF) | payer OTHER, SELFPAY ==
--- NOTE | ~2024-05-16 | FL_ITS ---
RIGHT HIP INTRA-ARTICULAR STEROID INJECTION INDICATIONS: Right hip pain. Intra-articular steroid injection is requested by provider. PROCEDURE: Risks and benefits and possible complications were discussed with the patient and the consent form was signed. The patient was placed supine on the fluoroscopy table. The right hip was prepped and draped in normal sterile fashion. 1% buffered lidocaine was used for anesthesia. A 22-gauge spinal needle was used to access the joint. Intra-articular position of the needle within the shoulder joint was verified using 3 cc of Omnipaque 300. A total of 5 mL 1% lidocaine and 40 mg Medrol was then injected into the hip joint. The needle was then removed and a Band-Aid was applied to the injection site. The patient tolerated the procedure. There were no immediate complications. FL/FL Guided Asp Inj Major Jt RT IMPRESSION: Successful fluoroscopic guided intra-articular steroid injection into the right hip joint. Electronically signed by: Federico Holt MD 05/16/2024 02:08 PM EDT
[2024-05-16] MEDS: iohexoL 300 MG/ML 50 ML INFUS..BTL 10 ML INTRAARTIC (13:45)
[2024-05-16] MEDS: Lidocaine HCl 2 % MPF 5 ML VIAL 3 ML SUBCUT (13:48)
[2024-05-16] MEDS: methylPREDNISolone acetate 80 MG VIAL INTRAARTIC (13:49)
== END 2024-05-16 12:49 | disposition home or self-care (01) ==
LOC: HO.XRAY 12:48
PROVIDERS: PCP Internal Medicine; Visit Provider Physician Assistant
DX: M16.11 Unilateral primary osteoarthritis, right hip (principal)
CPT/HCPCS: 20610; 77002; J1010; J2003; Q9967

== ENCOUNTER → 2024-05-16 13:00 | Outpatient (BNV) | payer OTHER, SELFPAY | PROVIDERS: PCP Internal Medicine; Visit Provider Radiology Diagnostic Radiology | DX: M25.551 Pain in right hip (principal) | CPT/HCPCS: 20610; 77002 ==

== ENCOUNTER 2024-12-12 15:18 | Outpatient (AMB) | payer OTHER, SELFPAY ==
--- NOTE | 2024-12-12 16:04 | MHC.OFFVIS ---
Intake Visit Reasons: 6m Allergies sumatriptan (From IMITREX) Allergy (Mild, Verified 12/12/24 16:08) N/V topiramate (From TOPAMAX) Allergy (Mild, Verified 12/12/24 16:08) HALLUCINATIONS latex Allergy (Unknown, Verified 12/12/24 16:08) Unknown Medication List - Last Reconciled 12/12/24 by Mya Catalan CNP acetaminophen ER (Tylenol Arthritis Pain) 650 mg PO Q12H PRN atorvastatin 20 mg PO DAILY bkspmpixjh-scycrnkpdhcbq-ubtf 50-325-40 mg 1 tab PO DIRECTED PRN cyclobenzaprine 10 mg PO BEDTIME dextroamphetamine-amphetamine 20 mg (Adderall) 20 mg PO DAILY 30 days escitalopram oxalate 20 mg PO DAILY estradiol-norethindrone acet 1-0.5 mg 1 tab PO DAILY levothyroxine 112 mcg PO DAILY nabumetone 1 tab PO BID omega-3 fatty acids 1,000 mg PO DAILY omeprazole 40 mg PO DAILY 90 days propranolol 60 mg PO DAILY valacyclovir 500 mg PO DAILY HPI Comments Details: Migraines are controlled with propranolol. Memory better with Adderall, but eating sugar often which makes symptoms worse. More stress and anxiety lately as neighbors are back and there are some issues that have been ongoing for years. Some work-related stress. She had some RLS symptoms, urge to move legs if she drank carbonated beverages in the evening. Sleep was so-so. 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 Was having problems with sugar and cut that out for period of time. Improvement in her mind never shuts. Fioricet as needed on rare occasion. Has cut caffeine and went off Estrogen patch. 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 Has lost some weight. Started CBD and quit alcohol. Neuropsych testing was normal. Memory issues are essentially unchanged. She says she is always had poor hand eye coordination but it may be worsening. Brain feels jumbled a lot of the time. Previous MRI, evoked potentials, and EEG were normal. Had cardio work up and PT and nothing came up. Legs feel achy , tired , tingly and weak PFSH Medical History (Updated 12/12/24 @ 16:17 by Mya Catalan CNP) Arthritis Elevated cholesterol GERD (gastroesophageal reflux disease) Fatigue IRIS (obstructive sleep apnea) Obesity Hx of migraine headaches HSV (herpes simplex virus) infection Insomnia Hypothyroid Depression Surgical History (Updated 06/04/24 @ 07:43 by Miriam Momin) History of surgery Hx of colonoscopy (~06/09/20) History of tubal ligation [place] teeth extracted History of bilateral carpal tunnel release Hx of cholecystectomy Social History Are you a primary health care / medical job titles to a significant other at home: No Do you presently have visiting nurse or other home services: No Patient Tobacco Use Status: Former Tobacco user Second Hand Smoke Exposure: No Substance Use Type: Marijuana Current occupational status: employed 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 Review of Systems Const Denies chills, Denies daytime sleepiness, Reports difficulty sleeping, Denies fatigue, Denies fever(s), Denies frequent falls, Reports headache(s), Denies increased appetite, Denies poor appetite, Denies snoring, Denies weakness, Denies weight gain and Denies weight loss Eyes Denies loss of vision ENT Denies vertigo, Reports dizziness, Reports headache(s) and Denies neck pain Card Denies chest pain at rest, Denies chest pain with activity, Denies syncope, Denies leg edema, Denies palpitations, Denies dyspnea and Denies dyspnea on exertion Resp Denies cough, Denies dyspnea, Denies dyspnea on exertion and Denies snoring GI Denies abdominal pain, Denies constipation, Denies heartburn, Denies diarrhea and Denies nausea Denies urinary frequency, Denies urinary incontinence and Denies urinary urgency Musc Denies abnormal gait, Reports back pain, Denies myalgias, Reports arthralgias, Denies neck pain, Denies numbness and Denies tingling Neuro Denies abnormal gait, Denies vertigo, Reports dizziness, Denies syncope, Denies frequent falls, Reports headache(s), Denies lack of coordination, Denies loss of vision, Denies memory loss, Denies numbness, Denies Other visual disturbances, Denies restless legs, Denies seizure-like activity, Denies tingling, Denies paresthesias, Denies tremor(s) and Denies weakness Psych Denies anxiety, Denies depression, Denies auditory hallucinations, Denies memory loss and Denies visual hallucinations Endo Denies fatigue and Denies palpitations Physical Exam Const Other: General Appearance:? normal, in no acute distress. Heart:? S1, S2 normal, no murmurs. Lungs:? clear anteriorly and posteriorly. Musculoskeletal:? normal. Extremities:? no edema. Psych:? alert, oriented, cognitive function intact, cooperative with exam. Neuro Other: Abnormal Neurological Findings:?none.? Mental Status: alert and oriented X 3. Normal attention, orientation, memory, and affect. Cranial Nerves: Pupils are equal, round, and reactive to light. External ocular muscles are intact. Visual anthony are full, no ptosis. Face is symmetrical, no facial weakness or droop. Facial sensations are normal. Tongue protrudes in midline. Palate elevates symmetrically. Shoulder shrugging is normal Motor Examination: Normal muscle tone, bulk and strength. No atrophy or fasciculations. No drift of the extended upper extremities. DTR 2+. Plantars are flexor. Sensory Exam: Normal light touch, temperature, pinprick, vibration, and joint-position sensations. Rhomberg sign is absent. Coordination: No ataxia. No titubation. Gait Exam: Within normal limits. Cerebellar Signs: Bthuzh-dw-holk is okay. Extrapyramidal System: No tremor, rigidity with normal facial expressions. No bradykinesia. No bradyphrenia. Normal arm swing and posture. No propulsion or retropulsion. Speech: Normal. Assessment & Plan Assessment & Plan (1) Migraine: Code(s): G43.909 - Migraine, unspecified, not intractable, without status migrainosus Category: Medical Qualifiers: Migraine type: unspecified Status migrainosus presence: without status migrainosus Intractability: not intractable Qualified Code(s): G43.909 - Migraine, unspecified, not intractable, without status migrainosus Plan: Continue propranolol 60mg 1 tablet daily. (2) ADD (attention deficit disorder): Code(s): F98.8 - Other specified behavioral and emotional disorders with onset usually occurring in childhood and adolescence Category: Medical Qualifiers: Hyperactivity presence: unspecified Qualified Code(s): F98.8 - Other specified behavioral and emotional disorders with onset usually occurring in childhood and adolescence Plan: Continue Adderall 20mg 1 tablet daily. (3) Anxiety: Code(s): F41.9 - Anxiety disorder, unspecified Category: Medical Plan: Start hydroxyzine 25mg 1 tablet twice a day as needed for anxiety, use/side effects reviewed. Medications: New hydroxyzine HCl 25 mg PO BID PRN 60 tabs 2RF anxiety 30 days Refilled dextroamphetamine-amphetamine 20 mg (Adderall) Partial Fill upon patient request. 20 mg PO DAILY 30 tabs 0RF 30 days Coding Level of Care Code Est Pt Level 4 (29881) Diagnoses Migraine without status migrainosus, not intractable, unspecified migraine type G43.909 Migraine type: unspecified Status migrainosus presence: without status migrainosus Intractability: not intractable Attention deficit disorder, unspecified hyperactivity presence F98.8 Hyperactivity presence: unspecified Anxiety F41.9
--- OUTSIDE RECORDS SUMMARY | 2024-12-12 19:06 | XMS_ITS | Clinical Summary ---
Author Organization [facility] Address [address] [place] [id number] Phone Care Team Providers Care Order Expediter Name Role Phone Jeremi Vasquez DO Primary Care Provider Allergies Active Allergy Reactions Criticality Noted Date Comments Sumatriptan Succinate Nausea and/or Vomiting 07/11/2017 Halluncinations Latex, Natural Rubber 07/11/2017 Penicillins Nausea and/or Vomiting 07/11/2017 Sumatriptan 04/26/2022 Other reaction(s): nausea Topiramate 07/11/2017 Hallucinations Medications gabapentin (NEURONTIN) 300 MG capsule Orally as needed Active valACYclovir (VALTREX) 500 MG tablet Take 1 tablet (500 mg total) by mouth daily. 90 tablet 4 9 Active levothyroxine (SYNTHROID, LEVOTHROID) 112 MCG tablet 0 Active butalbital-acet aminophen-caffe ine (FIORICET, ESGIC) 50-325-40 mg per tablet Take by mouth as needed. 1 Active omeprazole (PRILOSEC) 20 MG capsule Take 40 mg by mouth daily. 1 Active cholecalciferol (VITAMIN D3) 25 MCG (1,000 unit) tablet Take 1,000 Units by mouth daily. Active sertraline (ZOLOFT) 100 MG tablet 3 Active propranoloL (INDERAL LA) 60 mg 24 hr capsule 1 capsule. Active cyclobenzaprine (FLEXERIL) 5 MG tablet 3 Active atorvastatin (LIPITOR) 20 MG tablet 1 tablet. 2 Active vitamin D3-vitamin K2, MK4, 1,000-100 unit-mcg Tab 1 capsule. Active MIMVEY 1-0.5 mg per tablet take one tablet by mouth every day 90 tablet 4 Active escitalopram oxalate (LEXAPRO) 20 MG tablet Take 20 mg by mouth daily. 4 Active dextroamphetami ne-amphetamine (ADDERALL) 20 mg Tab tablet Take 20 mg by mouth once. 4 Active estradioL (VAGIFEM) [address] 10 mcg vaginally 2 (two) times a week. Active halobetasol (ULTRAVATE) 0.05 % ointmentIndicat ions:Lichen sclerosus APPLY LENTIL SIZED AMOUNT TO VULVA ONCE WEEKLY INSTRUCTED. 15 g 1 4 Active betamethasone, augmented, (DIPROLENE) 0.05 % ointmentIndicat ions:lichen sclerosis of the vulva Apply topically once a week. Pea sized amount (1/4g) to the vulva Indications: lichen sclerosis of the vulva 15 g 2 4 Active Active Problems Problem Noted Date Diagnosed Date Poor sleep 08/14/2020 Assessment & Plan (07/07/2022 2:53 PM EDT): Has not slept well since menopause started Wakes up and does not feel rested Had a sleep study - does NOT have sleep apnea Assessment & Plan (11/30/2020 8:36 AM EDT): She was using CPAP sporadically as she didn't feel like it improved her sleep. She had lost weight (40lbs) and psychometrist told her no longer needed CPAP, however she has since gained most of weight back. Stylist Apprentice recommended resuming CPAP, which she has been doing in the past week - but she feels no better yet - she has f/u after a month. Last sleep study was 2018. She wakes at night, has trouble falling back asleep. She does not feel refreshed in the morning. Assessment & Plan (08/14/2020 4:32 PM EDT): Notes poor sleep since menopause Had some changes in meds Stopped using CPAP when instructed it was not needed She will check in with sleep doctor about another sleep study We could try HRT although unclear if this related - she is not having night sweats/hot flashes. Will await a few months, confirm no further bleeding Hypoactive sexual desire disorder 07/26/2018 Assessment & Plan (07/26/2018 8:45 AM EDT): Discussed the multifactoral nature of this; mentioned testosterone as an option but with possible side effects; recommended vaginal estrogen, lubricant, and working on relationship and self esteem - consider self-help books or couples therapy. Normalized; discussed this can be fine if feels ok for the couple Genital herpes 07/26/2018 Overview (07/26/2018): Valtrex 500mg daily suppression Vaginal cyst 01/18/2018 Overview (07/26/2018): Palpated 3cm fluid filled posterior vaginal wall cyst Stable on 6 month re-exam Plan monitor q6-12 months Assessment & Plan (08/14/2020 4:32 PM EDT): stable Hypothyroid 07/11/2017 Lichen sclerosus 07/11/2017 Overview (07/26/2018): Halobetasol once weekly to vulva Assessment & Plan (07/07/2022 2:43 PM EDT): stable Assessment & Plan (08/14/2020 4:32 PM EDT): stable Assessment & Plan (07/26/2018 8:48 AM EDT): Skin all appears healthy, however newly noted slight phimosis of clitoral holguin; this could be a progression of LS but also may be a natural part of menopause and low estrogen state. 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 Overview (11/30/2023): Has tried estrace; felt too messy Happy with vagifem Assessment & Plan (07/07/2022 2:48 PM EDT): We discuss this topic again today Offered estrogen therapies again She has no desire; maybe because it is painful Assessment & Plan (07/26/2018 8:46 AM EDT): Recommended vagifem twice weekly at least for a few months to see if it is helpful Resolved Problems Problem Noted Date Diagnosed Date Resolved Date Abnormal mammogram of right breast 02/04/2019 11/30/2023 Overview (02/04/2019): 09/2018 Recommended f/u right mammogram in 6 months Urinary frequency 01/18/2018 07/26/2018 Overview (01/18/2018): x3 months. UA and diabetes screening recommended Immunizations Immunization Administration Dates Next Due Tdap 09/12/2018 Family History Medical History Relation Comments Alcohol abuse Father Breast cancer Maternal Aunt malignant, ? age CV disease Maternal Grandfather Diabetes mellitus Maternal Grandmother Dementia Mother Epilepsy Mother Glaucoma Mother Diabetes mellitus Paternal Grandmother Relation Status Comments Father Maternal Aunt Maternal Grandfather Maternal Grandmother Mother Alive Paternal Grandmother Social History Tobacco Use Types Packs/Day Years Used Date Smoking Tobacco: Former Smokeless Tobacco: Never Tobacco Cessation:Counseling Given: Not Answered Alcohol Use Standard Drinks/Week Comments Not Currently 0 (1 standard drink = 0.6 oz pur e alcohol) a couple a week Education Answer Date Recorded Are you interested in more education? Not on andrae e 06/17/2022 Are you concerned about learning? Not on file 06/17/2022 No 06/17/2022 No 06/17/2022 Digital Access Answer Date Recorded No 07/18/2022 No 07/18/2022 Reliable internet access at home? Not on file 07/18/2022 Device with a working camera? 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 Not on file Not on file Not on f ile Last Filed Vital Signs Vital Sign Reading Time Taken Comments Blood Pressure 122/76 11/30/2023 4:04 PM EDT Pulse - - Temperature - - Respiratory Rate - - Oxygen Saturation - - Inhaled Oxygen Concentration - - Weight 65.8 kg (145 lb) 11/30/2023 4:04 PM EDT Height 149.9 cm (4' 11 ) 11/30/2023 4:04 PM EDT Body Mass Index 29.29 11/30/2023 4:04 PM EDT Plan of Treatment Health Maintenance Due Date Last Done Comments LIPID PANEL 1968 TSH LEVEL 1968 DEPRESSION SCREENING 1980 SMOKING Hx and SMOKELESS TOBACCO SCREENING 1981 HEPATITIS C SCREENING 1986 HIV ONE-TIME SCREENING (18-6 5 YEARS) 1986 SCREENING FOR DIABETES 12/04/2003 COLOGUARD 2013 COLONOSCOPY 2013 COLORECTAL CANCER SCREENING 2013 FIT TEST 2013 FOBT 2013 SIGMOIDOSCOPY 2013 VIRTUAL COLONOSCOPY 2013 PNEUMOCOCCAL VACCINES (50+ years) (1 of 1 - PCV) 2018 ZOSTER VACCINES (1 of 2) 2018 PAP SMEAR 08/15/2023 08/14/2020, 01/18/2018, 01/18/2018 INFLUENZA VACCINE (#1) 2024 12/04/2022 COVID-19 VACCINE (4 - 2024-2 6 season) 2024 03/06/2021, 09/25/2020, 08/28/2020 MAMMOGRAM 11/29/2025 11/30/2023, 08/04/2017, 04/14/2015 Adult Td,Tdap Booster 09/12/2028 09/12/2018 RSV VACCINE (1 - 1-dose 75+ series) 12/04/2043 HEPATITIS A VACCINES Aged Out No long er eligible based on patient's age to complete this topic HIB VACCINES Aged Out No longer eligi ble based on patient's age to complete this topic MENINGOCOCCAL VACCINES (ACWY) Aged Out No longer eligible based on patient's age to complete this topic MENINGOCOCCAL VACCINES (B) Aged Out N o longer eligible based on patient's age to complete this topic Medical Devices Not on file Procedures Procedure Name Priority Date/Time Associated Diagnosis Comments BI MAMMOGRAM SCREENING (BILATERAL) Routine 11/30/2023 4:30 PM EDT Screening mammogram for breast cancer PAP TEST Routine 08/14/2020 12:00 AM EDT from Last 3 Months or Most Recently Relevant to Health Maintenance Results * Pap Smear (08/14/2020 12:00 AM EDT) 08/14/2020 08/17/2020 9:1 8 AM EDT Narrative SEE NARRATIVE - 08/26/2020 11:11 [place] [address] Advertising Solicitor: Brook Tello MD CASE MANAGEMENT SOCIAL WORKER Cytology Report FINAL DIAGNOSIS A. PAP SMEAR (SUREPATH) CE: SPECIMEN ADEQUACY: Satisfactory for evaluation; transformation zone present. Limited by mucus/lubricant INTERPRETATION: NEGATIVE FOR INTRAEPITHELIAL LESION OR MALIGNANCY. Electronically Signed Out By: RAFAEL James(ASCP) RAFAEL Torres(ASCP) The Pap test is a screening test primarily for squamous cancers and precursors and has associated false-negative and false-positive results. New technologies such as liquid-based preparations may decrease but will not eliminate all false-negative results. Regular sampling and follow-up of unexplained clinical signs and symptoms are recommended to minimize false negative results. CLINICAL HISTORY Date of Last Menstrual Period: Not Provided Menstrual History: Post Menopausal Bleeding, PM Other Clinical Conditions: Screening Pap SPECIMEN SOURCE A: PAP SMEAR (SUREPATH) CE Patient Name: ARIANNE NUÑEZ : 1970 (Age: 49) Sex: F Institution: [facility] Location: [facility] Date of Collection: 08/14/2020 Date of Reported: 08/26/2020 11:11 Results to: Tywla Abraham MD us Twyla Abraham MD CYTOLOGY ORDERABLES Final Result SEE NARRATIVE * BI MAMMOGRAM SCREENING WITH TOMOSYNTHESIS WITH CAD (BILATERAL) (08/04/2017 8:42 AM EDT) Anatomical Region Laterality Modality Breast Left, Breast Right, Breast Bilateral Bila teral Mammography 08/04/2017 10:4 5 AM EDT Impressions 08/04/2017 10:50 AM EDT No findings suspicious for malignancy. In the absence of a worrisome palpable abnormality, annual screening mammography is recommended. BI-RADS CATEGORY: 2 - Benign finding. DENSITY: There are scattered fibroglandular densities. POS CDHMAMA Narrative 08/04/2017 10:50 AM EDT COMPARISON: 06/13/2011 through 04/14/2015. Bilateral 3-D tomosynthesis with 2-D reconstructions in the CC and MLO projection of each breast was obtained. Computer-aided detection system also utilized. No new mass, asymmetry, architectural distortion or suspicious calcifications have become apparent on either side. Several faint nodular densities in each breast are unchanged. Procedure Note Osvaldo Cowart MD - 08/04/2017 COMPARISON: 06/13/2011 through 04/14/2015. Bilateral 3-D tomosynthesis with 2-D reconstructions in the CC and MLOprojection of each breast was obtained. Computer-aided detection systemalso utilized. No new mass, asymmetry, architectural distortion or suspiciouscalcifications have become apparent on either side. Several faint nodular densities in each breast are unchanged. IMPRESSION: No findings suspicious for malignancy. In the absence of a worrisomepalpable abnormality, annual screening mammography is recommended. BI-RADS CATEGORY: 2 - Benign finding. DENSITY: There are scattered fibroglandular densities. POS CDHMAMA Twyla Abraham MD IMG MG EXAMS Final Resu lt from Last 3 Months or Most Recently Relevant to Health Maintenance Insurance WELLS[employer] NON NSPG PCP [employer] CONNE[employer]CARE [employer] NON NSPG PCP SILVER [employer]ITY CONNECTORCARE [employer] NON NSPG PCP SILVER CLARITY CONNECTORCARE [employer] NON NSPG PCP SILVER [employer]ARITY CONNECTORCARE [employer] NON NSPG PCP SILVER [employer]ARITY CONNECTORCARE [employer] NON NSPG PCP SILVER [employer]ARITY CONNECTORCARE [employer] NON NSPG PCP SILVER CLARITY CONNECTORCARE [facility] NON NSPG PCP [employer] CONNECTORCARE [facility] NON NSPG PCP [employer] Care Teams Order Expediter Relationship Specialty Start Date End Date Jeremi Vasquez DO [address] [place] [id number] PCP - General 12/06/16 Additional Source Comments The information contained in this document represents components of the legal health record. It is not the complete legal health record.[facility]
== END 2024-12-12 16:24 | disposition home or self-care (01) ==
LOC: HO.HSM 15:18
PROVIDERS: PCP Internal Medicine; Referring Provider Internal Medicine; Visit Provider Registered Nurse
DX: G43.909 Migraine, unspecified, not intractable, without status migrainosus (principal); F98.8 Other specified behavioral and emotional disorders with onset usually occurring in childhood and adolescence; F41.9 Anxiety disorder, unspecified
CPT/HCPCS: 99214

== ENCOUNTER → 2024-12-12 15:18 | Outpatient (BNVA) | payer OTHER, SELFPAY | PROVIDERS: PCP Internal Medicine; Referring Provider Internal Medicine; Visit Provider Registered Nurse | DX: G43.909 Migraine, unspecified, not intractable, without status migrainosus (principal); F98.8 Other specified behavioral and emotional disorders with onset usually occurring in childhood and adolescence; F41.9 Anxiety disorder, unspecified; Z79.899 Other long term (current) drug therapy | CPT/HCPCS: 99212 ==

== ENCOUNTER 2024-12-23 14:24 | Outpatient (AMB) | payer OTHER, SELFPAY ==
[2024-12-23 14:25] VITALS: BP 115/57; PULSE 88; RESP 14; TEMP 36.2; O2SAT 98; BMI 32.5
--- NOTE | 2024-12-23 14:25 | A.OFFPC_ITS ---
Vital Signs 12/23/24 14:25 Height 4 ft 10.66 in Weight 159 lb BMI 32.5 BP 115/57 L Blood Pressure Location Rt brachial Position Sitting Respiration 14 Pulse 88 Pulse Source Pulse Oximeter Temp 97.2 F Temp Source Temporal Artery Scan Pulse Oximetry (%) 98 Oxygen Delivery Method Room Air Intake Visit Reasons: Annual physical - see comments Transformation Architect Required: No Accompanied by: Self / Same As Patient Allergies sumatriptan (From IMITREX) Allergy (Mild, Verified 12/23/24 14:26) N/V topiramate (From TOPAMAX) Allergy (Mild, Verified 12/23/24 14:26) HALLUCINATIONS Tobacco use date assessed: 12/23/24 Dental Screening Dental Screen Date: 12/23/24 Did you have a dental visit in the last 12 months?: Yes Did you have a dental problem in the last 6 months where you did not have access to dental care?: No Was dental information given to patient?: Patient has dentist [facility] Medical History Arthritis Elevated cholesterol GERD (gastroesophageal reflux disease) Fatigue IRIS (obstructive sleep apnea) Obesity Hx of migraine headaches HSV (herpes simplex virus) infection Insomnia Hypothyroid Depression Surgical History History of surgery Hx of colonoscopy (~06/09/20) History of tubal ligation [place] teeth extracted History of bilateral carpal tunnel release Hx of cholecystectomy Social History (Updated 12/23/24 @ 14:36 by GILBERT White) Housing: House Are you a primary healthcare science specialist to a significant other at home: No Do you presently have visiting nurse or other home services: No Alcohol intake: current Alcohol intake frequency: does not drink Patient Tobacco Use Status: Former Tobacco user service: No Current occupational status: employed Cognitive needs: No Hearing needs: No Vision needs: Yes (rx glasses) Questionnaire PHQ-9 Over the last 2 weeks, how often have you been bothered by any of the following problems? 1. Little interest or pleasure in doing things: not at all 2. Feeling down, depressed, or hopeless: not at all 3. Trouble falling or staying asleep, or sleeping too much: not at all 4. Feeling tired or having little energy: not at all 5. Poor appetite or overeating: not at all 6. Feeling bad about yourself - or that you are a failure or have let yourself or your family down: not at all 7. Trouble concentrating on things, such as reading the newspaper or watching television: not at all 8. Moving or speaking so slowly that other people could have noticed. Or the opposite - being so fidgety or restless that you have been moving around a lot more than usual: not at all 9. Thoughts that you would be better off or of hurting yourself in some way: not at all Total score: 0 Source: Developed by Drs. Jeremi Alberts, Demetra Pitts, Shun Weston and colleagues, with an educational purnima from [employer]. Thrive Questionnaire Date Thrive assessed: 12/23/24 I am a: Patient What is your living situation today?: I have a steady place to live Within the past 12 months, did the food you bought not last and you didn't have the money to get more?: Never true Within the past 12 months, did you worry whether your food would run out before you got money to buy more?: Never true Do you have trouble paying for medicines?: No Do you have trouble getting transportation to medical appointments?: No Do you have trouble paying your heating and electricity bill?: No Do you have trouble taking care of your child, family member or friend?: No Do you have trouble with day-to-day activities such as bathing, preparing meals, shopping, managing finances, etc.?: No Are you currently unemployed and looking for a job?: No Are you interested in more education?: No Please select the resources that you would like help with: None THRIVE Score: 0 AUDIT C Alcohol Use Questionnaire (AUDIT-C) 1. How often do you have a drink containing alcohol?: Never 3. How often do you have six or more drinks on one occasion?: Never Total Score: 0 CAMERON-7 AMB Questionnaire CAMERON-7 Date CAMERON - 7 assessed: 12/23/24 Feeling nervous, anxious, or on edge: 0 = Not at all Not being able to stop or control worryin = Not at all Worrying too much about different things: 0 = Not at all Trouble relaxin = Not at all Being so restless that it is hard to sit still: 0 = Not at all Becoming easily annoyed or irritable: 0 = Not at all Feeling afraid as if something awful might happen: 0 = Not at all Total CAMEORN-7 score (0-4 normal; 5-9 mild; 10-14 moderate; 15-21 severe): 0 Source: Developed by Drs. Jeremi Alberts, Demetra Pitts, Shun Weston and colleagues, with an educational purnima from [employer]. Physical exam (Primary Care) Vital Signs: Last Vital Signs Temp 97.2 F 12/23/24 14:25 Pulse 88 12/23/24 14:25 Resp 14 12/23/24 14:25 BP 115/57 L 12/23/24 14:25 Pulse Ox 98 12/23/24 14:25 Oxygen Delivery Method Room Air 12/23/24 14:25 BMI result Body Mass Index 32.5 Tobacco/Smoking Status: Tobacco use Status Tobacco use date assessed 12/23/24 12/23/24 14:27 Patient Tobacco Use Status Former Tobacco user 12/23/24 14:36 PHQ-9: PHQ-9 Score PHQ-9: Total score 0 12/23/24 14:27 Thrive Assessment: Date of Thrive Assessment Date Thrive assessed 12/23/24 12/23/24 14:27 Office Procedures Flu Questionnaire Does the patient have a severe egg allergy?: No Does the patient have severe life threatening allergies?: No Does the patient have a fever or illness today?: No Has the patient ever had Guillain-[place] Syndrome?: No Has the patient ever had any past reaction to a flu shot?: No Immunizations Fluarix [id number] (PF) 45 mcg (15 mcg x 3)/0.5 mL IM syringe Performing Provider: Daniel Conn MD [facility] Documented (not given) by: GILBERT White on 12/23/24 14:36 Reason Not Given: Patient Refused Coding Level of Care Code Est Pt Prev Care 40-64y(05894) Diagnoses Hypothyroid E03.9 Annual physical exam Z00.00 Assessment & Plan Assessment & Plan (1) Hypothyroid: Code(s): E03.9 - Hypothyroidism, unspecified Category: Medical Plan: TSH in range (2) Annual physical exam: Code(s): Z00.00 - Encounter for general adult medical examination without abnormal findings Plan: History of Present Illness - The patient is a 54-year-old female presenting for a physical exam. - She inquired about her candidacy for Ozempic for weight loss and reports she is not diabetic. - Her current medications include atorvastatin 20 mg daily, butalbital as-needed for headaches (which she has not needed recently), and cyclobenzaprine as-needed for muscle spasms (also not needed recently). - She also takes Adderall daily prescribed by Dr. Jordan, escitalopram daily, hydroxyzine for anxiety, omeprazole, and propranolol. - She has been taking half a tablet of hydroxyzine at night to assist with sleep and anxiety, which she finds effective without causing morning drowsiness. - The patient is a former smoker, having smoked about a pack a day for approximately 11 years, from age 11 or 12 until she quit in 1989 at age 23. - She had a severe cold in July with a persistent cough that lasted for about two weeks afterward. - The patient confirms her periods have stopped. - Her health screenings are up to date, with a mammogram in April and a prior colonoscopy. - She has an endoscopy scheduled for January. - She reports having early cataracts and tries to avoid driving at night. - She is also aware of mild hearing loss in her right ear and acknowledges needing a follow-up with audiology. Social History - Tobacco Use: The patient is a former smoker, having started at age 11 or 12 and quit in 1989. - She smoked approximately one pack per day for about 11 years. - Employment: She works at [employer]. - Patient reports experiencing work-related stress and is considering other job options for better income and happiness. - Living Situation/Family: The patient reports stress related to her mother being in long-term care. Review of Systems - Constitutional: Inquires about weight loss medication. - Eyes: Reports early cataracts. - She tries not to drive at night but does not know if she sees halos around lights. - Ears: Reports mild hearing loss in the right ear. - Respiratory: Reports history of a persistent cough for two weeks after a cold in July. - Musculoskeletal: Denies recent need for cyclobenzaprine for muscle spasms. - Neurological: Denies recent need for butalbital for headaches. - Psychiatric: Reports anxiety managed with hydroxyzine. - Reports difficulty sleeping, which is helped by hydroxyzine at night. - Endocrine: Reports her periods have stopped. - Denies being diabetic. Physical Exam General: Cooperative and healthy appearing Nutritional Appearance: Well nourished Orientation/consciousness: Patient oriented x3 Limitations: No limitations Head: Normal to inspection General: Appearance normal, both eyes and all related structures Neck: Normal visual inspection Chest: Normal palpation of entire chest wall Respiratory: Mild hearing loss in the right ear, chest x-ray ordered ormal respiratory effort Neurology: Patient oriented x3, mild cataracts noted Results - Mammogram: Completed in April, patient reports being up to date. - Colonoscopy: Previously completed, patient reports being up to date. Plan - Weight Management: Advised patient to contact her insurance provider to determine coverage for weight loss medications like Ozempic, noting it is often not covered for non-diabetic patients. - Health Maintenance: Will order a bone density scan for osteoporosis screening. - Laboratory Studies: Will order repeat fasting blood work. - Diagnostic Imaging: Will order a chest X-ray due to former smoking history and a recent protracted cough; a CT scan will be considered if the X-ray shows abnormalities. - Medications: Patient to continue current medications. - She was advised that she may remain on half a tablet of hydroxyzine if it remains effective for anxiety and sleep. - Vaccinations: Patient will schedule her flu shot independently. - Follow-up: Patient to follow up in six months. Discussion Notes I discussed the patient's request for Ozempic for weight loss, explaining that insurance typically does not cover it for non-diabetic individuals. I advised her to contact her insurance company directly to verify coverage for weight loss medications based on her specific plan. Regarding her request for a lung scan due to her history as a former smoker, I explained that the initial step would be a chest X-ray. A CT scan would only be ordered if the X-ray reveals any abnormalities. We reviewed her medications, and I confirmed that using half a tablet of hydroxyzine at night is acceptable if it helps with her anxiety and sleep witho ut causing next-day drowsiness. I informed her that I am ordering a bone density scan, fasting blood work, and a chest X-ray. I instructed her to go for the labs and X-ray while fasting. We will have her return for a follow-up in six months. Patient Instructions - Contact your insurance company to ask if they cover weight loss medications. - A bone scan for osteoporosis will be scheduled for you. - You will need to get fasting blood work and a chest X-ray. - Please do not eat or drink anything after midnight the night before these tests. - You may continue taking half a tablet of your hydroxyzine at night for anxiety and sleep if that dose is working well for you. - You can get your flu shot at a pharmacy like [facility] since it can sometimes make your arm sore. - Please schedule a follow-up appointment in six months. Orders: Orders XR DEXA axial skeleton Today M81.0 - Age-related osteoporosis without current pathological fracture XR chest 2V Today R05.9 - Cough, unspecified Complete Blood Count no Diff Today E03.9 - Hypothyroidism, unspecified Basic Metabolic Panel Today E03.9 - Hypothyroidism, unspecified Lipid Panel Today E03.9 - Hypothyroidism, unspecified Thyroid Stimulating Hormone Today E03.9 - Hypothyroidism, unspecified UA and rflx microscopic Today E03.9 - Hypothyroidism, unspecified Influenza [id number] Immunization Today Z23 - Encounter for immunization Liver Panel Today E03.9 - Hypothyroidism, unspecified
== END 2024-12-23 15:01 | disposition home or self-care (01) ==
LOC: HO.HMCSH 14:24
PROVIDERS: PCP Internal Medicine; Visit Provider Internal Medicine
DX: Z00.00 Encounter for general adult medical examination without abnormal findings (principal); E03.9 Hypothyroidism, unspecified

== ENCOUNTER → 2024-12-23 14:24 | Outpatient (BNVA) | payer OTHER, SELFPAY | PROVIDERS: PCP Internal Medicine; Visit Provider Internal Medicine | DX: Z00.00 Encounter for general adult medical examination without abnormal findings (principal); E03.9 Hypothyroidism, unspecified; Z28.21 Immunization not carried out because of patient refusal; Z87.891 Personal history of nicotine dependence; Z79.899 Other long term (current) drug therapy | CPT/HCPCS: 99396 ==

== ENCOUNTER 2025-02-04 06:10 | Outpatient (REF) | payer OTHER, SELFPAY ==
--- OUTSIDE RECORDS SUMMARY | 2025-02-04 06:13 | XMS_ITS | Clinical Summary ---
Author Organization [facility] Address [address] [place] [id number] Phone Care Team Providers Care Whitewasher Name Role Phone Jeremi Vasquez DO Primary [...] sleep. She had lost weight (40lbs) and ventilated rib fitter told her no longer needed CPAP, however she has since gained most of weight back. 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 PAP SMEAR [...] : 1970 (Age: 49) Sex: F Institution: [facility] Location: [facility] Date of Collection: 08/14/2020 Date of Reported: [...] WE[facility]SENSE NON NSPG PCP [facility] NON NSPG PCP [place] [facility] NON NSPG PCP [facility] [facility] Care Teams Whitewasher Relationship Specialty Start Date End Date Jeremi Vasquez DO [address] [place] [id number] PCP - General 12/06/16 Additional Source Comments The information contained in this document represents components of the legal health record. It is not the complete legal health record.[facility]
[2025-02-04 07:17] LABS: Hematocrit 42.4 % (37.0-47.0); Hemoglobin 14.5 g/dl (12.0-16.0); Mean Corpuscular HGB Conc 34.2 g/dl (31.0-35.0); Mean Corpuscular Hemoglobin 30.3 pg (27.0-33.0); Mean Corpuscular Volume 88.5 fL (80.0-98.0); NRBC Abs Auto 0.000 X10*3/uL (0.0-0.012); NRBC Pct Auto 0.0 /100WBC (0.0-0.2); Platelet Count 285 X10*3/uL (160-400); Red Blood Count 4.79 X10*6/uL (4.20-5.50); White Blood Count 6.4 X10*3/uL (4.8-10.8)
[2025-02-04 07:22] LABS: Appearance Urine Clear; Glucose Urine UA Negative (Negative); PH 7.0 (5.0-9.0); Specific Gravity - Urine 1.015 (1.005-1.025)
[2025-02-04 07:51] LABS: Alanine Aminotransferase 37 U/L (0-31); Albumin Level 4.3 g/dL (3.5-5.0); Alkaline Phosphatase 118 U/L (39-117); Anion Gap 10 (12-20); Aspartate Amino Transferase 33 U/L (5-31); Blood Urea Nitrogen 14 mg/dL (9-16); Calcium 9.6 mg/dL (8.4-10.2); Carbon Dioxide 30 mmol/L (22-29); Chloride 105 mmol/L (96-108); Cholesterol 185 mg/dL (<200); Estimated Glomerular Filt Rate > 60; HDL Cholesterol 52 mg/dL (>40); Potassium 4.4 mmol/L (3.3-5.1); Sodium 141 mmol/L (135-145); Total Protein 6.5 g/dL (6.5-8.0); Triglycerides 154 mg/dL (<150)
[2025-02-04 07:55] LABS: Thyroid Stimulating Hormone 0.66 uIU/mL (0.32-4.0)
== END 2025-02-04 06:11 | disposition home or self-care (01) ==
LOC: HO.LAB 06:10
PROVIDERS: PCP Internal Medicine; Visit Provider Internal Medicine
DX: E03.9 Hypothyroidism, unspecified (principal)
CPT/HCPCS: 36415; 80048; 80061; 80076; 81003; 84443; 85027

== ENCOUNTER 2025-02-04 06:29 | Day surgery (SDC) | payer OTHER, SELFPAY ==
--- OUTSIDE RECORDS SUMMARY | 2025-01-24 17:22 | XMS_ITS | Clinical Summary ---
Author Organization [facility] Address [address] [place] [phone] Phone Care Team Providers Care Warehouse Processor Name Role Phone Jeremi Vasquez DO Primary [...] sleep. She had lost weight (40lbs) and medical laboratory technical officer told her no longer needed CPAP, however she has since gained most of weight back. 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 PAP SMEAR [...] : 1970 (Age: 49) Sex: F Institution: [facility] Location: [facility] Date of Collection: 08/14/2020 Date of Reported: 08/26/2020 11:11 Results to: Twyla Abraham MD us Twyla Abraham MD CYTOLOGY [...] WE[facility]SENSE NON NSPG PCP [facility] NON [facility] PCP [place] [facility] NON [facility] PCP [facility] [facility] Care Teams Warehouse Processor Relationship Specialty Start Date End Date Jeremi Vasquez DO [address] [place] [id number] PCP - General 12/06/16 Additional Source Comments The information contained in this document represents components of the legal health record. It is not the complete legal health record.[facility]
--- NOTE | 2025-01-31 10:21 | P.CONAN_ITS ---
Documented by User: Lidia Ahumada NP 01/31/25 10:21 HPI - Anesthesia Eval Consult details Narrative: 54yo F for Upper Endoscopy PMFSH Active Problems Active Problems: All Active Problems Anxiety (Acute) ADD (attention deficit disorder) (Acute) Migraine (Acute) Greater trochanteric bursitis of right hip (Acute) Osteoarthritis of right hip (Acute) Hypothyroid (Acute) Labral tear of shoulder (Acute) Mass of finger of right hand (Acute) Painful arc syndrome of right shoulder (Acute) Cubital tunnel syndrome on left (Acute) History of carpal tunnel release of both wrists (Acute) Calcific tendinitis of left shoulder (Acute) Left wrist sprain (Acute) Median nerve injury (Acute) Left elbow contusion (Acute) Sprain of left elbow (Acute) Elbow pain, left (Acute) Hx of neck injury (Acute) Left hand pain (Acute) Upper respiratory tract infection (Acute) Fatigue (Acute) IRIS (obstructive sleep apnea) (Acute) Obesity (Acute) Past Medical History Medical History Arthritis Elevated cholesterol GERD (gastroesophageal reflux disease) Fatigue IRIS (obstructive sleep apnea) Obesity Hx of migraine headaches HSV (herpes simplex virus) infection Insomnia Hypothyroid Depression Family History Family history of problems with anesthesia: No Surgical History Surgical History Hx of elbow surgery History of esophagogastroduodenoscopy (EGD) History of surgery Hx of colonoscopy (~06/09/20) History of tubal ligation [place] teeth extracted History of bilateral carpal tunnel release Hx of cholecystectomy History of Problems with Anesthesia: No Social History Social History Housing: House Are you a primary caregiver services home to a significant other at home: No Do you presently have visiting nurse or other home services: No Alcohol intake: current Alcohol intake frequency: does not drink Patient Tobacco Use Status: Former Tobacco user Advance Directives: No Advance Directives Information Provided: Yes service: No Current occupational status: employed Cognitive needs: No Hearing needs: No Vision needs: Yes (rx glasses) Meds Allergies Allergy/AdvReac Type Severity Reaction Status Date / Time sumatriptan (From IMITREX) Allergy Mild N/V Verified 12/23/24 14:26 topiramate (From TOPAMAX) Allergy Mild HALLUCINATI Verified 12/23/24 14:26 ONS Home Medications ?Medication ?Instructions ?Recorded ?Confirmed ?Last Taken ?Type jqbltivkdj-obmwvresmftqg-letnejus 1 tab PO DIRECTED PRN Migraine 06/01/20 01/31/25 Unknown History 50 mg-325 mg-40 mg tablet Headache propranolol 60 mg tablet 60 mg PO DAILY 02/01/2301/20 Unknown History multivitamin 1 tab PO DAILY 12/23/2401/20 Unknown History Assessment and Plan Assessment Anesthesia Assessment: Chart Reviewed Final Anesthetic Review Family History of Problems with Anesthesia: No History of Problems with Anesthesia: No Documented by User: Clarisse Perez MD 02/04/25 07:23 [facility] Past Medical History Medical History Arthritis Elevated cholesterol GERD (gastroesophageal reflux disease) Fatigue IRIS (obstructive sleep apnea) Obesity Hx of migraine headaches HSV (herpes simplex virus) infection Insomnia Hypothyroid Depression Surgical History Surgical History Hx of elbow surgery History of esophagogastroduodenoscopy (EGD) History of surgery Hx of colonoscopy (~06/09/20) History of tubal ligation [place] teeth extracted History of bilateral carpal tunnel release Hx of cholecystectomy Social History Social History Housing: House Are you a primary caregiver services home to a significant other at home: No Do you presently have visiting nurse or other home services: No Alcohol intake: current Alcohol intake frequency: does not drink Patient Tobacco Use Status: Former Tobacco user Advance Directives: No Advance Directives Information Provided: Yes service: No Current occupational status: employed Cognitive needs: No Hearing needs: No Vision needs: Yes (rx glasses) Meds Allergies Allergy/AdvReac Type Severity Reaction Status Date / Time sumatriptan (From IMITREX) Allergy Mild N/V Verified 12/23/24 14:26 topiramate (From TOPAMAX) Allergy Mild HALLUCINATI Verified 12/23/24 14:26 ONS Home Medications ?Medication ?Instructions ?Recorded ?Confirmed ?Last Taken ?Type vpfuruilvo-mibtsyepgjziy-melrxtrr 1 tab PO DIRECTED PRN Migraine 06/01/20 01/31/25 Unknown History 50 mg-325 mg-40 mg tablet Headache propranolol 60 mg tablet 60 mg PO DAILY 02/01/2301/20 Unknown History multivitamin 1 tab PO DAILY 12/23/2401/20 Unknown History Exam Airway Mallampati Class: II TM Dist: >3cm Neck ROM: Full Loose/Missing/Broken Teeth: No Heart: RRR Lungs: CTA Assessment and Plan Assessment Anesthesia Assessment: Anesthesia Plan Discussed Final Anesthetic Review NPO: Yes ASA Class: III Final Preanesthetic Review: Meds/Allgs Chart Reviewed, Consent Obtained/Reviewed and Anes Risks/Benef Reviewed Patient Risk: Intermediate Procedure Risk: Intermediate Anesthetic Plan Anesthetic Plan: MAC: Disposition: Standard PACU
[2025-01-31 13:20] VITALS: BMI 30.8
[2025-02-04 06:54] VITALS: BMI 31.8
[2025-02-04 06:56] VITALS: BP 112/57; PULSE 60; RESP 16; TEMP 36.1; O2SAT 95
[2025-02-04] MEDS: Lactated Ringers 1,000 ML 100 ML IVCONT (07:08)
--- NOTE | 2025-02-04 07:32 | MHC.SHP ---
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 Details of Present Illness: see H&P no changes Relevant Family History (Specify if Yes): No Relevant Social History: None Present Medications: see Short Stay Collaborative assessment Medical History: No relevant PMH History of Previous Operations: No relevant previous surgery Allergies: Allergies Allergy/AdvReac Type Severity Reaction Status Date / Time sumatriptan (From IMITREX) Allergy Mild N/V Verified 12/23/24 14:26 topiramate (From TOPAMAX) Allergy Mild HALLUCINATI Verified 12/23/24 14:26 ONS Review of Systems Sugical H&P ROS: Negative: Constitution, Cardiovascular, Respiratory, Neurological, Psychiatric, Hem-Onc, Allergic/Immunologic, Gastrointestinal, Genitourinary, Musculoskeletal, Integumentary, Endocrine and Eyes/Ears/Nose/Throat Exam Surgical H&P Exam: Normal: HEENT, Normal: Heart, Normal: Lungs, Normal: Extremities, Normal: Abdomen, Normal: Skin and Normal: Neurological Plan Diagnosis/Plan: Unchanged I have reviewed the history and physical and performed a pertinent physical examination on my patient. No changes have occurred unless specified. Time Spent With Patient Time: Total time managing care of this patient today ____ minutes.
[2025-02-04 07:55] VITALS: BP 95/46; PULSE 68; RESP 18; TEMP 36.8; O2SAT 95
[2025-02-04 08:00] VITALS: BP 101/55; PULSE 68; RESP 18; O2SAT 98
[2025-02-04 08:10] VITALS: BP 110/58; PULSE 71; RESP 16; TEMP 36.6; O2SAT 99
--- NOTE | 2025-02-05 07:09 | OP_ITS ---
DATE OF SERVICE: 02/04/2025 SURGEON: Patrick Frank MD INDICATIONS: Koehler's esophagus. PREOPERATIVE DIAGNOSIS: POSTOPERATIVE DIAGNOSIS: PROCEDURE PERFORMED: Upper endoscopy with biopsy. ESTIMATED BLOOD LOSS: COMPLICATIONS: ANESTHESIA: ASSISTANTS: SPECIMENS: MEDICATIONS: Monitored anesthesia care. DESCRIPTION OF PROCEDURE: A history and physical was performed. The risks and benefits of the procedure were explained to the patient. Informed consent was obtained. The patient was placed in the left lateral decubitus position. The Olympus video gastroscope was introduced into the esophagus, stomach, and duodenum. Examination was performed. The scope was removed. She tolerated the procedure well and was returned to the recovery area in stable condition. FINDINGS: Esophagus: The esophagus showed a slightly irregular EG junction. There were no raised lesions or ulcerated areas. Stomach: The stomach showed no evidence of masses, ulcers, or polyps. Duodenum: The bulb and 2nd portion were normal. Biopsies were obtained from the EG junction and from the antrum. IMPRESSION: Koehler esophagus. RECOMMENDATION: Follow up the biopsy results. MD TAMIKA Rowley/MODL / [id number]
== END 2025-02-04 08:45 | disposition home or self-care (01) ==
PROVIDERS: PCP Internal Medicine; Visit Provider Internal Medicine Gastroenterology
PROC: 0DJ08ZZ Inspection of Upper Intestinal Tract, Via Natural or Artificial Opening Endoscopic (ICD-10-PCS; CPT 43235; principal; 2025-02-04 07:30)
DX: K22.70 Barrett's esophagus without dysplasia (principal)
CPT/HCPCS: 43239; 88305; 88313; 88342; J2003; J2704